=== PATIENT | female | born 1975 | race Caucasian/White ===

== ENCOUNTER 2020-09-07 09:27 | Emergency (ER) | payer OTHER ==
--- NOTE | 2020-09-07 10:05 | ERPHSYRPT ---
- History of Present Illness Time Seen by Provider: 09/07/20 09:45 Source: patient, family Exam Limitations: no limitations Patient Subjective Stated Complaint: Pt c/o of being dizzy off and on for the past week Triage Nursing Assessment: Pt brought to the ER by her boyfriend, hypertensive, denies pain, states that sometimes she is awaken with dizziness and then she will be fine all day, denies ear pain, denies any congestion or nasal drainage, c/o of eyes burning due to her allergies, doesn't appear to be in any distress Physician History: This is a 44-year-old white female who presents with 1 week history of int ermittent dizziness and lightheadedness. She never had anything like this in the past. She did have medication that she started back in April but her symptoms began only a week ago. She has no chest pain she has no shortness of breath. She has no nausea vomiting diarrhea. She has no abdominal pain. She did not suffer any head trauma. She has no earaches. She has no cough. Patient has no cardiac history. Patient does have a history of migraine headaches. Patient does not have a headache at this time. Timing/Duration: week(s), intermittent Severity: moderate Deficits: no difficulties Baseline/Normal Cognition: alert oriented x 3 Current Cognition: alert oriented x 3 Baseline Gait: walks w/o assistance Associated Symptoms: denies symptoms Allergies/Adverse Reactions: aspirin Allergy (Severe, Verified 09/07/20 09:45) cefaclor [From Ceclor] Allergy (Severe, Verified 09/07/20 09:45) Anaphylactic Reaction clarithromycin [From Biaxin] Allergy (Severe, Verified 09/07/20 09:45) Penicillins Allergy (Severe, Verified 09/07/20 09:45) Anaphylactic Reaction sulfamethoxazole [From Bactrim] Allergy (Severe, Verified 09/07/20 09:45) trimethoprim [From Bactrim] Allergy (Severe, Verified 09/07/20 09:45) Home Medications: Duloxetine HCl [Cymbalta] 60 mg PO DAILY 09/07/20 [History] Travel Risk - International Travel Have you traveled outside of the country in past 3 weeks: No - Coronavirus Screening Are you exhibiting any of the following symptoms?: No Close contact with a COVID-19 positive Pt in past 14-21 Days: No - Vaccine Status Have you recieved a Covid-19 vaccination: No - Review of Systems Constitutional: No Symptoms Eyes: No Symptoms Ears, Nose, & Throat: No Symptoms Respiratory: No Symptoms Cardiac: No Symptoms Abdominal/Gastrointestinal: No Symptoms Genitourinary Symptoms: No Symptoms Musculoskeletal: No Symptoms Skin: No Symptoms Neurological: Dizziness Psychological: No Symptoms Endocrine: No Symptoms Hematologic/Lymphatic: No Symptoms Immunological/Allergic: No Symptoms All Other Systems: Reviewed and Negative - Past Medical History Pertinent Past Medical History: Yes Neurological History: Migraines ENT History: No Pertinent History Cardiac History: No Pertinent History Respiratory History: No Pertinent History Endocrine Medical History: No Pertinent History Musculoskeletal History: No Pertinent History GI Medical History: No Pertinent History History: No Pertinent History Psycho-Social History: No Pertinent History Female Reproductive Disorders: No Pertinent History - Past Surgical History Past Surgical History: Yes Neuro Surgical History: No Pertinent History Cardiac: No Pertinent History Respiratory: No Pertinent History Gastrointestinal: Appendectomy Genitourinary: No Pertinent History Musculoskeletal: Orthopedic Surgery Female Surgical History: Dilation & Curettage, Section, Tubal Ligation Other Surgical History: ablasion, 2 left shoulder, 2 left pinky, jorden carpal tunnel - Social History Smoking Status: Former smoker Exposure to second hand smoke: No Drug Use: none Patient Lives Alone: No - Female History Hx Now: No (ablasion, tubal) - Nursing Vital Signs Nursing Vital Signs: Initial Vital Signs Temperature 98.2 F 09/07/20 09:31 Pulse Rate 71 09/07/20 09:31 Blood Pressure 144/82 09/07/20 09:31 O2 Sat by Pulse Oximetry 100 09/07/20 09:31 Pain Scale Pain Intensity 0 - Blairs Coma Scale Best Eye Response (Blairs): (4) open spontaneously Best Verbal Response (Wan): (5) oriented Best Motor Response (Blairs): (6) obeys commands Blairs Total: 15 - Physical Exam General Appearance: no apparent distress, alert, anxiety, obese Eye Exam: bilateral eye: normal inspection, PERRL, EOMI Ears, Nose, Throat Exam: normal ENT inspection, moist mucous membranes Neck Exam: normal inspection, non-tender, supple, full range of motion Respiratory: normal breath sounds, lungs clear, airway intact, No chest tenderness, No respiratory distress Cardiovascular: regular rate/rhythm, normal heart sounds, normal peripheral pul ses Gastrointestinal: soft, normal bowel sounds, No tenderness Pelvic Exam: not done Rectal Exam: not done Back Exam: normal inspection, normal range of motion, No CVA tenderness, No vertebral tenderness Extremity Exam: normal inspection, normal range of motion, pelvis stable 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 No comparison EKG available) Ordered Tests: Active Orders 24 hr Category Date Time Status Clean Catch Urine Specimen STAT Care 09/07/20 10:09 Active EKG-ER Only STAT Care 09/07/20 10:09 Active IV Insertion STAT Care 09/07/20 10:09 Active HEAD WITHOUT CONTRAST [CT] Stat Exams 09/07/20 10:09 Taken CBC W DIFF Stat Lab 09/07/20 10:15 Completed CMP Stat Lab 09/07/20 10:15 Completed ETHYL ALCOHOL Stat Lab 09/07/20 10:15 Completed MAGNESIUM Stat Lab 09/07/20 10:15 Completed TROPONIN Q3H Lab 09/07/20 10:15 Completed TROPONIN Q3H Lab 09/07/20 13:15 Ordered TROPONIN Q3H Lab 09/07/20 16:15 Ordered TROPONIN Q3H Lab 09/07/20 19:15 Ordered TROPONIN Q3H Lab 09/07/20 22:15 Ordered UA W/RFX UR CULTURE Stat Lab 09/07/20 10:11 Completed Urine Triage Profile Stat Lab 09/07/20 10:15 Completed Medication Summary Discontinued Medications Generic Name Dose Route Start Last Admin Trade Name Freq PRN Reason Stop Dose Admin Meclizine HCl 25 mg 09/07/20 10:09 09/07/20 10:12 Antivert 25 Mg PO 09/07/20 10:10 25 mg STAT ONE Administration Meclizine HCl Confirm 09/07/20 10:12 Antivert 25 Mg Administered 09/07/20 10:13 Dose 25 mg .ROUTE [facility] ONE Lab/Rad Data: Laboratory Result Diagrams 09/07/20 10:15 09/07/20 10:15 Laboratory Results 09/07/20 09/07/20 09/07/20 Range/Units 10:15 10:15 10:15 WBC 7.1 (4.0-10.5) K/mm3 RBC 4.86 (4.1-5.4) M/mm3 Hgb 13.8 (12.0-16.0) gm/dl Hct 42.4 (35-47) % MCV 87.2 (78-100) fl MCH 28.4 (26-32) pg MCHC 32.5 (32-36) g/dl RDW 14.0 (11.5-14.0) % Plt Count 181 (150-450) K/mm3 MPV 12.7 H (7.5-11.0) fl Gran % 70.6 H (36.0-66.0) % Eos # (Auto) 0.06 (0-0.5) Absolute Lymphs (auto) 1.52 (1.0-4.6) Absolute Monos (auto) 0.49 (0.0-1.3) Lymphocytes % 21.4 L (24.0-44.0) % Monocytes % 6.9 (0.0-12.0) % Eosinophils % 0.8 (0.00-5.0) % Basophils % 0.3 (0.0-0.4) % Absolute Granulocytes 5.00 (1.4-6.9) Basophils # 0.02 (0-0.4) Sodium 138 (137-145) mmol/L Potassium 4.0 (3.5-5.1) mmol/L Chloride 105 (98-107) mmol/L Carbon Dioxide 26 (22-30) mmol/L Anion Gap 9.8 (5-15) MEQ/L BUN 14 (7-17) mg/dL Creatinine 0.81 (0.52-1.04) mg/dL Estimated GFR > 60.0 ML/MIN Glucose 78 (74-106) mg/dL Calcium 9.0 (8.4-10.2) mg/dL Magnesium 2.4 H (1.6-2.3) mg/dL Total Bilirubin 0.30 (0.2-1.3) mg/dL AST 20 (14-36) U/L ALT 13 (0-35) U/L Alkaline Phosphatase 59 (38-126) U/L Troponin I < 0.012 (0.000-0.034) ng/mL Serum Total Protein 7.7 (6.3-8.2) g/dL Albumin 4.3 (3.5-5.0) g/dL Urine Color (YELLOW) Urine Appearance (CLEAR) Urine pH (5-6) Ur Specific [place] (1.005-1.025) Urine Protein (Negative) Urine Ketones (NEGATIVE) Urine Blood (0-5) Florentino/ul Urine Nitrite (NEGATIVE) Urine Bilirubin (NEGATIVE) Urine Urobilinogen (0-1) mg/dL Ur Leukocyte Esterase (NEGATIVE) Urine WBC (Auto) (0-5) /HPF Urine RBC (Auto) (0-2) /HPF U Epithel Cells (Auto) (FEW) /HPF Urine Bacteria (Auto) (NEGATIVE) /HPF Urine Mucus (Auto) (NEGATIVE) /HPF Urine Culture Reflexed (NO) Urine Glucose (NEGATIVE) mg/dL Urine Opiates Level (NEGATIVE) Ur Methadone (NEGATIVE) Urine Barbiturates (NEGATIVE) Ur Phencyclidine (PCP) (NEGATIVE) Urine Amphetamine (NEGATIVE) U Benzodiazepine Level (NEGATIVE) Urine Cocaine (NEGATIVE) Urine Marijuana (THC) (NEGATIVE) Ethyl Alcohol < 10 (0-10) mg/dL 09/07/20 09/07/20 Range/Units 10:15 10:11 WBC (4.0-10.5) K/mm3 RBC (4.1-5.4) M/mm3 Hgb (12.0-16.0) gm/dl Hct (35-47) % MCV (78-100) fl MCH (26-32) pg MCHC (32-36) g/dl RDW (11.5-14.0) % Plt Count (150-450) K/mm3 MPV (7.5-11.0) fl Gran % (36.0-66.0) % Eos # (Auto) (0-0.5) Absolute Lymphs (auto) (1.0-4.6) Absolute Monos (auto) (0.0-1.3) Lymphocytes % (24.0-44.0) % Monocytes % (0.0-12.0) % Eosinophils % (0.00-5.0) % Basophils % (0.0-0.4) % Absolute Granulocytes (1.4-6.9) Basophils # (0-0.4) Sodium (137-145) mmol/L Potassium (3.5-5.1) mmol/L Chloride (98-107) mmol/L Carbon Dioxide (22-30) mmol/L Anion Gap (5-15) MEQ/L BUN (7-17) mg/dL Creatinine (0.52-1.04) mg/dL Estimated GFR ML/MIN Glucose (74-106) mg/dL Calcium (8.4-10.2) mg/dL Magnesium (1.6-2.3) mg/dL Total Bilirubin (0.2-1.3) mg/dL AST (14-36) U/L ALT (0-35) U/L Alkaline Phosphatase (38-126) U/L Troponin I (0.000-0.034) ng/mL Serum Total Protein (6.3-8.2) g/dL Albumin (3.5-5.0) g/dL Urine Color YELLOW (YELLOW) Urine Appearance CLEAR (CLEAR) Urine pH 5.0 (5-6) Ur Specific [place] 1.028 (1.005-1.025) Urine Protein NEGATIVE (Negative) Urine Ketones NEGATIVE (NEGATIVE) Urine Blood NEGATIVE (0-5) Florentino/ul Urine Nitrite NEGATIVE (NEGATIVE) Urine Bilirubin NEGATIVE (NEGATIVE) Urine Urobilinogen NEGATIVE (0-1) mg/dL Ur Leukocyte Esterase NEGATIVE (NEGATIVE) Urine WBC (Auto) NONE (0-5) /HPF Urine RBC (Auto) NONE (0-2) /HPF U Epithel Cells (Auto) NONE (FEW) /HPF Urine Bacteria (Auto) NONE (NEGATIVE) /HPF Urine Mucus (Auto) SLIGHT (NEGATIVE) /HPF Urine Culture Reflexed NO (NO) Urine Glucose NEGATIVE (NEGATIVE) mg/dL Urine Opiates Level NEGATIVE (NEGATIVE) Ur Methadone NEGATIVE (NEGATIVE) Urine Barbiturates NEGATIVE (NEGATIVE) Ur Phencyclidine (PCP) NEGATIVE (NEGATIVE) Urine Amphetamine NEGATIVE (NEGATIVE) U Benzodiazepine Level NEGATIVE (NEGATIVE) Urine Cocaine NEGATIVE (NEGATIVE) Urine Marijuana (THC) NEGATIVE (NEGATIVE) Ethyl Alcohol (0-10) mg/dL - Departure Departure Disposition: Home Clinical Impression: Dizziness Condition: Stable Critical Care Time: No Referrals: BOURGASSER,GENE A [NON-STAFF PHY W/O PRIVILEGES] - Additional Instructions: Drink plenty of fluids. Take your medication as prescribed. Call your primary care physician on 09/09/2020 and make an appointment for further management and evaluation. Return to the emergency department if your symptoms worsen Prescriptions: Meclizine HCl 25 mg [Antivert 25 mg] 25 mg PO Q8H PRN #10 tablet PRN Reason: Dizziness
[2020-09-07] MEDS: ANTIVERT 25 MG PO ONE (10:12)
[2020-09-07] MEDS ORDERED: ANTIVERT 25 MG ONE (10:12)
[2020-09-07 10:26] LABS: BASOPHIL % 0.3 % (0.0-0.4); Basophil (Absolute #) 0.02 (0-0.4); Eosinophil % 0.8 % (0.00-5.0); Eosinophil (Absolute #) 0.06 (0-0.5); Hematocrit 42.4 % (35-47); Hemoglobin 13.8 gm/dl (12.0-16.0); Lymphocyte (Absolute #) 1.52 (1.0-4.6); Lymphocytes % 21.4 % (24.0-44.0); Mean Cell Volume 87.2 fl (78-100); Mean Corpuscular Hemoglobin 28.4 pg (26-32); Mean Corpuscular Hgb Concent. 32.5 g/dl (32-36); Mean Platelet Volume 12.7 fl (7.5-11.0); Monocyte (Absolute #) 0.49 (0.0-1.3); Monocytes % 6.9 % (0.0-12.0); Neutrophil % 70.6 % (36.0-66.0); Platelet Count 181 K/mm3 (150-450); Red Blood Count 4.86 M/mm3 (4.1-5.4); White Blood Count 7.1 K/mm3 (4.0-10.5)
[2020-09-07 10:32] LABS: Appearance CLEAR (CLEAR); Bilirubin NEGATIVE (NEGATIVE); Blood NEGATIVE Ery/ul (0-5); Glucose NEGATIVE (NEGATIVE); Ketones NEGATIVE (NEGATIVE); Leukocyte Esterase NEGATIVE (NEGATIVE); Mucus SLIGHT /HPF (NEGATIVE); Nitrite NEGATIVE (NEGATIVE); Protein,Urine Dip NEGATIVE (Negative); Specific Gravity 1.028 (1.005-1.025); Urobilinogen NEGATIVE mg/dL (0-1)
[2020-09-07 10:35] LABS: ALBUMIN 4.3 g/dL (3.5-5.0); ALKALINE PHOSPHATASE 59 U/L (38-126); ANION GAP 9.8 MEQ/L (5-15); BLOOD UREA NITROGEN 14 mg/dL (7-17); CHLORIDE 105 mmol/L (98-107); Carbon Dioxide 26 mmol/L (22-30); Creatinine 1 0.81 mg/dL (0.52-1.04); EST GLOMERULAR FILTRATION RATE > 60.0 ML/MIN; ETHYL ALCOHOL < 10 mg/dL (0-10); Glucose 78 mg/dL (74-106); MAGNESIUM 2.4 mg/dL (1.6-2.3); SGOT/AST 20 U/L (14-36); SGPT/ALT 13 U/L (0-35); SODIUM 138 mmol/L (137-145); Total Protein 7.7 g/dL (6.3-8.2)
[2020-09-07 10:46] LABS: Amphetamine,Urine NEGATIVE (NEGATIVE); Barbiturate,Urine NEGATIVE (NEGATIVE); Benzodiazepine,Urine NEGATIVE (NEGATIVE); Cocaine,Urine NEGATIVE (NEGATIVE); Methadone,Urine NEGATIVE (NEGATIVE); Opiate,Urine NEGATIVE (NEGATIVE); PCP,Urine NEGATIVE (NEGATIVE); THC,Urine NEGATIVE (NEGATIVE)
[2020-09-07 11:33] VITALS: BP 118/79; PULSE 59; O2SAT 98
--- NOTE | 2020-09-07 16:05 | XRAY ---
Indication: Dizziness and nausea one week. No known injury. Multiple contiguous axial images obtained through the head without contrast. Comparison: None Normal appearing brain parenchyma, ventricles, and bony calvarium. Visualized paranasal sinuses and mastoid air cells are clear. Impression: Normal CT head without contrast exam. Comment: Preliminary interpretation was made by [facility]. No critical discrepancy.
== END 2020-09-07 11:40 | disposition home or self-care (01) ==
LOC: ED 09:27
DX: R42 Dizziness and giddiness (principal)
CPT/HCPCS: 36000; 36415; 70450; 80053; 80307; 81001; 83735; 84484; 85025; 93005; 99284; G0480; A9270-GY

== ENCOUNTER 2020-12-17 10:17 | Emergency (ER) | payer BC, OTHER ==
--- NOTE | 2020-12-17 10:52 | ERPHSYRPT ---
- History of Present Illness Time Seen by Provider: 12/17/20 10:30 Source: patient Exam Limitations: no limitations Patient Subjective Stated Complaint: pt here for burning and tingling pain to feet for 3 weeks getting worse, she has apt wednesday with , no injury Triage Nursing Assessment: pt alert, resp easy, skin w/d/p. pt restless in bed, crying and anxious, no edema noted. moves all ext well Physician History: Patient is a 45-year-old female presents to our ED with complaints of progressively worsening burning and tingling of bilateral feet. Symptoms started approximately 3 weeks ago. Patient states her tingling is unbearable. She also has low back pain. No trauma. No fever. Symptoms are mild to modera te in intensity. No specific worsening improving factors. Patient denies associated fever. No saddle anesthesia. No recent back procedure. Patient states she is otherwise healthy. Patient voices no other complaints or concerns at this time. Timing/Duration: week(s) Severity: moderate (3 weeks) Modifying Factors: Improves With: nothing Associated Symptoms: denies symptoms Allergies/Adverse Reactions: aspirin Allergy (Severe, Verified 12/17/20 10:28) cefaclor [From Ceclor] Allergy (Severe, Verified 12/17/20 10:28) Anaphylactic Reaction clarithromycin [From Biaxin] Allergy (Severe, Verified 12/17/20 10:28) Penicillins Allergy (Severe, Verified 12/17/20 10:28) Anaphylactic Reaction sulfamethoxazole [From Bactrim] Allergy (Severe, Verified 12/17/20 10:28) trimethoprim [From Bactrim] Allergy (Severe, Verified 12/17/20 10:28) Home Medications: Duloxetine HCl [Cymbalta] 60 mg PO DAILY 09/07/20 [History] Hx Influenza Vaccination/Date Given: No Hx Pneumococcal Vaccination/Date Given: No Immunizations Up to Date: Yes Travel Risk - International Travel Have you traveled outside of the country in past 3 weeks: No - Coronavirus Screening Are you exhibiting any of the following symptoms?: No Close contact with a COVID-19 positive Pt in past 14-21 Days: No - Vaccine Status Have you recieved a Covid-19 vaccination: No - Review of Systems Constitutional: No Symptoms, No Fever, No Chills Eyes: No Symptoms Ears, Nose, & Throat: No Symptoms Respiratory: No Symptoms, No Cough, No Dyspnea Cardiac: No Symptoms, No Chest Pain, No Edema, No Syncope Abdominal/Gastrointestinal: No Symptoms, No Abdominal Pain, No Nausea, No Vomiting, No Diarrhea Genitourinary Symptoms: No Symptoms, No Dysuria Musculoskeletal: No Symptoms, No Back Pain, No Neck Pain Skin: No Symptoms, No Rash Neurological: No Symptoms, No Dizziness, No Focal Weakness, No Sensory Changes Psychological: No Symptoms Endocrine: No Symptoms Hematologic/Lymphatic: No Symptoms Immunological/Allergic: No Symptoms All Other Systems: Reviewed and Negative - Past Medical History Pertinent Past Medical History: Yes Neurological History: Migraines ENT History: No Pertinent History Cardiac History: No Pertinent History Respiratory History: No Pertinent History Endocrine Medical History: No Pertinent History Musculoskeletal History: No Pertinent History GI Medical History: No Pertinent History History: No Pertinent History Psycho-Social History: No Pertinent History Female Reproductive Disorders: No Pertinent History Other Medical History: body aches - Past Surgical History Past Surgical History: Yes Neuro Surgical History: No Pertinent History Cardiac: No Pertinent History Respiratory: No Pertinent History Gastrointestinal: Appendectomy Genitourinary: No Pertinent History Musculoskeletal: Orthopedic Surgery Female Surgical History: Dilation & Curettage, Section, Tubal Ligation Other Surgical History: ablasion, 2 left shoulder, 2 left pinky, jorden carpal tunnel - Social History Smoking Status: Former smoker Exposure to second hand smoke: Yes Drug Use: none Patient Lives Alone: No - Female History Hx Last Menstrual Period: 5 years ago Hx Now: No - Nursing Vital Signs Nursing Vital Signs: Initial Vital Signs Temperature 98.6 F 12/17/20 10:22 Pulse Rate 113 H 12/17/20 10:22 Respiratory Rate 20 12/17/20 10:22 Blood Pressure 174/91 12/17/20 10:22 O2 Sat by Pulse Oximetry 99 12/17/20 10:22 Pain Scale Pain Intensity 5 - Physical Exam General Appearance: no apparent distress, alert Eye Exam: PERRL/EOMI, eyes nml inspection Ears, Nose, Throat Exam: normal ENT inspection, TMs normal, pharynx normal, moist mucous membranes Neck Exam: normal inspection, non-tender, supple, full range of motion Respiratory Exam: normal breath sounds, lungs clear, No respiratory distress Cardiovascular Exam: regular rate/rhythm, normal heart sounds, normal peripheral pulses Gastrointestinal/Abdomen Exam: soft, normal bowel sounds, No tenderness, No mass Back Exam: normal inspection, normal range of motion, No CVA tenderness, No vertebral tenderness Extremity Exam: normal inspection, normal range of motion, pelvis stable, other (Negative Homans' sign bilaterally), No amputations, No penetrations, No limited range of motion, No pedal edema, No swelling, No tenderness Neurologic Exam: alert, oriented x 3, cooperative, normal mood/affect, sensation nml, sensory deficit, No motor deficits Skin Exam: normal color, warm, dry, No rash Lymphatic Exam: No adenopathy SpO2 Interpretation: normal SpO2: 99 O2 Delivery: Room Air - Course Nursing assessment & vital signs reviewed: Yes - CT Exams Lumbar Spine CT Interpretation: Tele-radiologist Report (At L5-S1 broad-based disc osteophyte complex with degenerative vacuum disc phenomena. Remaining level negative for acute fracture or suspicious bony lesions disc herniation or spinal canal stenosis. Facets are symmetric. Sagittal and coronal reformatted imaging demonstrates normal alignment with ) Ordered Tests: Active Orders 24 hr Category Date Time Status IV Insertion STAT Care 12/17/20 10:46 Active LUMBAR SPINE W/O [CT] Stat Exams 12/17/20 10:51 Completed CBC W DIFF Stat Lab 12/17/20 11:05 Completed CMP Stat Lab 12/17/20 11:05 Completed HCG,QUALITATIVE URINE Stat Lab 12/17/20 11:14 Completed UA W/RFX UR CULTURE Stat Lab 12/17/20 11:14 Completed Medication Summary Generic Name Dose Route Start Last Admin Trade Name Freq PRN Reason Stop Dose Admin Sodium Chloride 1,000 mls @ 100 mls/hr 12/17/20 11:00 12/17/20 11:19 Sodium Chloride 0.9% 1000 Ml IV 01/16/21 10:59 100 mls/hr .Q10H RADHA Administration Discontinued Medications Generic Name Dose Route Start Last Admin Trade Name Freq PRN Reason Stop Dose Admin Hydrocodone Bitart/Acetaminophen 6 tab 12/17/20 13:36 [place] 5/325 Mg PO 12/17/20 13:37 SENT HOME W/ PATIENT ONE Methylprednisolone Sodium 0 mg 12/17/20 10:50 12/17/20 11:19 Succinate 125 mg/ Sterile IV 12/17/20 10:51 125 mg Water 2 ml STAT ONE Administration Methylprednisolone Sodium Succinate Confirm 12/17/20 11:15 Solu-Medrol Administered 12/17/20 11:16 Dose 125 mg .ROUTE .STK-MED ONE Morphine Sulfate 4 mg 12/17/20 10:51 12/17/20 11:18 Morphine Sulfate 4 Mg Inj IV 12/17/20 10:52 4 mg STAT ONE Administration Morphine Sulfate Confirm 12/17/20 11:15 Morphine Sulfate 4 Mg Inj Administered 12/17/20 11:16 Dose 4 mg .ROUTE .STK-MED ONE Sterile Water Confirm 12/17/20 11:15 Sterile H2o 10 Ml Administered 12/17/20 11:16 Dose 10 ml IJ .STK-MED ONE Lab/Rad Data: Laboratory Result Diagrams 12/17/20 11:05 12/17/20 11:05 Laboratory Results 12/17/20 12/17/20 12/17/20 Range/Units 11:14 11:14 11:05 WBC (4.0-10.5) K/mm3 RBC (4.1-5.4) M/mm3 Hgb (12.0-16.0) gm/dl Hct (35-47) % MCV (78-100) fl MCH (26-32) pg MCHC (32-36) g/dl RDW (11.5-14.0) % Plt Count (150-450) K/mm3 MPV (7.5-11.0) fl Gran % (36.0-66.0) % Eos # (Auto) (0-0.5) Absolute Lymphs (auto) (1.0-4.6) Absolute Monos (auto) (0.0-1.3) Lymphocytes % (24.0-44.0) % Monocytes % (0.0-12.0) % Eosinophils % (0.00-5.0) % Basophils % (0.0-0.4) % Absolute Granulocytes (1.4-6.9) Basophils # (0-0.4) Sodium 140 (137-145) mmol/L Potassium 4.2 (3.5-5.1) mmol/L Chloride 105 (98-107) mmol/L Carbon Dioxide 23 (22-30) mmol/L Anion Gap 15.7 H (5-15) MEQ/L BUN 21 H (7-17) mg/dL Creatinine 0.86 (0.52-1.04) mg/dL Estimated GFR > 60.0 ML/MIN Glucose 129 H (74-106) mg/dL Calcium 9.0 (8.4-10.2) mg/dL Total Bilirubin < 0.10 L (0.2-1.3) mg/dL AST 20 (14-36) U/L ALT 16 (0-35) U/L Alkaline Phosphatase 53 (38-126) U/L Serum Total Protein 7.5 (6.3-8.2) g/dL Albumin 4.2 (3.5-5.0) g/dL Urine Color YELLOW (YELLOW) Urine Appearance SLIGHTLY CLOUDY (CLEAR) Urine pH 6.0 (5-6) Ur Specific Mason 1.027 (1.005-1.025) Urine Protein NEGATIVE (Negative) Urine Ketones NEGATIVE (NEGATIVE) Urine Blood NEGATIVE (0-5) Florentino/ul Urine Nitrite NEGATIVE (NEGATIVE) Urine Bilirubin NEGATIVE (NEGATIVE) Urine Urobilinogen NEGATIVE (0-1) mg/dL Ur Leukocyte Esterase TRACE (NEGATIVE) Urine WBC (Auto) NONE (0-5) /HPF Urine RBC (Auto) NONE (0-2) /HPF U Epithel Cells (Auto) RARE (FEW) /HPF Urine Bacteria (Auto) NONE (NEGATIVE) /HPF Urine Mucus (Auto) SLIGHT (NEGATIVE) /HPF Urine Culture Reflexed NO (NO) Urine Glucose NEGATIVE (NEGATIVE) mg/dL Urine HCG, Qual NEGATIVE (Negative) 12/17/20 Range/Units 11:05 WBC 10.7 H (4.0-10.5) K/mm3 RBC 4.60 (4.1-5.4) M/mm3 Hgb 12.8 (12.0-16.0) gm/dl Hct 40.0 (35-47) % MCV 87.0 (78-100) fl MCH 27.8 (26-32) pg MCHC 32.0 (32-36) g/dl RDW 14.3 H (11.5-14.0) % Plt Count 166 (150-450) K/mm3 MPV 12.3 H (7.5-11.0) fl Gran % 70.4 H (36.0-66.0) % Eos # (Auto) 0.09 (0-0.5) Absolute Lymphs (auto) 2.34 (1.0-4.6) Absolute Monos (auto) 0.73 (0.0-1.3) Lymphocytes % 21.8 L (24.0-44.0) % Monocytes % 6.8 (0.0-12.0) % Eosinophils % 0.8 (0.00-5.0) % Basophils % 0.2 (0.0-0.4) % Absolute Granulocytes 7.54 H (1.4-6.9) Basophils # 0.02 (0-0.4) Sodium (137-145) mmol/L Potassium (3.5-5.1) mmol/L Chloride (98-107) mmol/L Carbon Dioxide (22-30) mmol/L Anion Gap (5-15) MEQ/L BUN (7-17) mg/dL Creatinine (0.52-1.04) mg/dL Estimated GFR ML/MIN Glucose (74-106) mg/dL Calcium (8.4-10.2) mg/dL Total Bilirubin (0.2-1.3) mg/dL AST (14-36) U/L ALT (0-35) U/L Alkaline Phosphatase (38-126) U/L Serum Total Protein (6.3-8.2) g/dL Albumin (3.5-5.0) g/dL Urine Color (YELLOW) Urine Appearance (CLEAR) Urine pH (5-6) Ur Specific Mason (1.005-1.025) Urine Protein (Negative) Urine Ketones (NEGATIVE) Urine Blood (0-5) Florentino/ul Urine Nitrite (NEGATIVE) Urine Bilirubin (NEGATIVE) Urine Urobilinogen (0-1) mg/dL Ur Leukocyte Esterase (NEGATIVE) Urine WBC (Auto) (0-5) /HPF Urine RBC (Auto) (0-2) /HPF U Epithel Cells (Auto) (FEW) /HPF Urine Bacteria (Auto) (NEGATIVE) /HPF Urine Mucus (Auto) (NEGATIVE) /HPF Urine Culture Reflexed (NO) Urine Glucose (NEGATIVE) mg/dL Urine HCG, Qual (Negative) - Progress Progress: improved Progress Note: Patient reassessed. Pain improved. CT scan reveals broad-based disc osteophyte complex. MRI may be helpful. Will discharge at this time. Patient to follow- up with primary care doctor within 48 hours for reevaluation. A prescription for prednisone was forwarded to patient's pharmacy. 12/17/20 13:18 Counseled pt/family regarding: lab results, diagnosis - Departure Departure Disposition: Home Clinical Impression: Peripheral neuropathy, Broadbase disc osteophyte Condition: Stable Critical Care Time: No Referrals: SIXTO HUNT MD [Primary Care Provider] - Additional Instructions: Discharge/Care Plan SANTO PARHAM was seen on 12/17/20 in the Emergency Room. The patient was counseled regarding Diagnosis,Lab results, Imaging studies, need for follow up and when to return to the Emergency Room. Prescriptions given: Discharge Note I have spoken with the patient and/or caregivers. I have explained the patient's condition, diagnosis and treatment plan based on the information available to me at this time. I have answered the patient's and/or caregiver's questions and addressed any concerns. The patient and/or caregivers have as good understanding of the patient's diagnosis, condition and treatment plan as can be expected at this point. The vital signs have been stable. The patient's condition is stable and appropriate for discharge from the emergency department. The patient will pursue further outpatient evaluation with the primary care physician or other designated or consulting physician as outlined in the discharge instructions. The patient and/or caregivers are agreeable to this plan of care and follow-up instructions have been explained in detail. The patient and/or caregivers have received these instruction. The patient/and or caregivers are aware that any significant change in condition or worsening of symptoms should prompt an immediate return to this or the closest emergency department or call 911. Prescriptions: Prednisone 10 mg [Deltasone 10 mg] 40 mg PO DAILY 3 Days #12 tablet
[2020-12-17 11:08] LABS: Absolute Neutrophil Ct (ANC) 7.54 (1.4-6.9); BASOPHIL % 0.2 % (0.0-0.4); Basophil (Absolute #) 0.02 (0-0.4); Eosinophil % 0.8 % (0.00-5.0); Eosinophil (Absolute #) 0.09 (0-0.5); Hemoglobin 12.8 gm/dl (12.0-16.0); Lymphocyte (Absolute #) 2.34 (1.0-4.6); Lymphocytes % 21.8 % (24.0-44.0); Mean Corpuscular Hemoglobin 27.8 pg (26-32); Mean Platelet Volume 12.3 fl (7.5-11.0); Monocyte (Absolute #) 0.73 (0.0-1.3); Monocytes % 6.8 % (0.0-12.0); Neutrophil % 70.4 % (36.0-66.0); Platelet Count 166 K/mm3 (150-450); Red Cell Distribution Width 14.3 % (11.5-14.0); White Blood Count 10.7 K/mm3 (4.0-10.5)
[2020-12-17] MEDS ORDERED: MORPHINE SULFATE 4 MG INJ ONE (11:15)
[2020-12-17] MEDS ORDERED: solu-MEDROL ONE (11:15)
[2020-12-17] MEDS ORDERED: Sodium Chloride 0.9% 1000 ML 1,000 ML ONE (11:15)
[2020-12-17] MEDS ORDERED: Sterile H2O 10 ml IJ ONE (11:15)
[2020-12-17] MEDS: MORPHINE SULFATE 4 MG INJ IV ONE (11:18)
[2020-12-17 11:19] LABS: ALBUMIN 4.2 g/dL (3.5-5.0); ALKALINE PHOSPHATASE 53 U/L (38-126); ANION GAP 15.7 MEQ/L (5-15); BILIRUBIN,TOTAL < 0.10 mg/dL (0.2-1.3); BLOOD UREA NITROGEN 21 mg/dL (7-17); CHLORIDE 105 mmol/L (98-107); Carbon Dioxide 23 mmol/L (22-30); Creatinine 1 0.86 mg/dL (0.52-1.04); EST GLOMERULAR FILTRATION RATE > 60.0 ML/MIN; Glucose 129 mg/dL (74-106); Potassium 4.2 mmol/L (3.5-5.1); SGOT/AST 20 U/L (14-36); SGPT/ALT 16 U/L (0-35); SODIUM 140 mmol/L (137-145); Total Protein 7.5 g/dL (6.3-8.2)
[2020-12-17] MEDS: solu-MEDROL 125 MG, Sterile H2O 10 ml 2 ML IV ONE ×2 (11:19)
[2020-12-17] MEDS: Sodium Chloride 0.9% 1000 ML 1,000 ML IV SCH (11:19)
--- NOTE | 2020-12-17 12:07 | XRAY ---
Indication: Chronic low back pain. Multiple contiguous images obtained through the lumbar spine. Sagittal and coronal reformatted images obtained. Comparison: None Axial images demonstrates mild L5-S1 broad-based disc osteophyte complex with degenerative vacuum disc phenomena. Remaining levels negative for acute fracture, suspicious bony lesions, disc herniation, or spinal canal stenosis. Facets are symmetric. Sagittal and coronal reformatted images demonstrates normal alignment with L5-S1 disc space narrowing. No acute compression fracture or subluxation. Visualized noncontrasted soft tissues are unremarkable. Impression: L5-S1 degenerative disc disease better evaluated with outpatient MRI. Remaining CT lumbar spine is normal.
[2020-12-17 12:23] LABS: Appearance SLIGHTLY CLOUDY (CLEAR); Bilirubin NEGATIVE (NEGATIVE); Blood NEGATIVE Ery/ul (0-5); Epithelial Cells RARE /HPF (FEW); Glucose NEGATIVE (NEGATIVE); Ketones NEGATIVE (NEGATIVE); Leukocyte Esterase TRACE (NEGATIVE); Mucus SLIGHT /HPF (NEGATIVE); Nitrite NEGATIVE (NEGATIVE); Protein,Urine Dip NEGATIVE (Negative); Specific Gravity 1.027 (1.005-1.025); Urobilinogen NEGATIVE mg/dL (0-1)
[2020-12-17] MEDS: NORCO 5/325 MG PO ONE (13:38)
[2020-12-17 13:48] VITALS: BP 128/75; PULSE 83; O2SAT 98
== END 2020-12-17 13:48 | disposition home or self-care (01) ==
LOC: ED 10:17
DX: G62.9 Polyneuropathy, unspecified (principal); M53.80 Other specified dorsopathies, site unspecified
CPT/HCPCS: 36000; 36415; 72131; 80053; 81001; 84703; 85025; 96374; 96375; 99284; J2270; J2930

== ENCOUNTER 2021-08-20 07:48 | Day surgery (SDC) | payer BC, OTHER ==
[2021-08-20] MEDS ORDERED: Xylocaine 1% Vial 30 ML PF IJ ONE (07:49)
[2021-08-20] MEDS ORDERED: Sodium Chloride 0.9(Preservative Free) 10 ML IJ ONE (07:49)
[2021-08-20] MEDS ORDERED: Depo-Medrol 40 MG/ML IM ONE (07:49)
--- NOTE | 2021-08-20 10:20 | XRAY ---
Indication: Lumbar BRANNON. Intraoperative fluoroscopy provided for 17 seconds. 2 digital spot image submitted for interpretation demonstrates midline posterior needle tip projecting posterior to L4-L5 interspace. Small amount of contrast injected for needle tip placement. Correlate with intraoperative findings/report.
--- NOTE | 2021-08-20 12:13 | XRAY ---
17 seconds fluoroscopy time in surgery for lumbar BRANNON.
== END 2021-08-20 09:50 | disposition home or self-care (01) ==
LOC: SDC-PAIN 07:48
PROVIDERS: ATTEND Psychiatry & Neurology Pain Medicine
DX: M54.16 Radiculopathy, lumbar region (principal); Z79.899 Other long term (current) drug therapy
CPT/HCPCS: 62323; 72100; 77003; 84703; J1030; J2001; Q9966

== ENCOUNTER 2021-12-31 08:36 | Day surgery (SDC) | payer OTHER ==
[2021-12-31] MEDS ORDERED: Marcaine Mpf 0.5% Vial 30 Ml IJ ONE (08:37)
[2021-12-31] MEDS ORDERED: Depo-Medrol 40 MG/ML IM ONE (08:37)
[2021-12-31] MEDS ORDERED: DIPRIVAN 200 MG/20 ML IV ONE (10:37)
[2021-12-31] MEDS ORDERED: Lactated Ringers 1,000 ML IV ONE (12:14)
--- NOTE | 2021-12-31 14:33 | XRAY ---
Indication: Bilateral SI joint injection. Intraoperative fluoroscopy provided for 18 seconds. 4 digital spot image submitted for interpretation demonstrates posterior needle tip projecting over the inferior left and right SI joint. Correlate with intraoperative findings/report.
--- NOTE | 2021-12-31 16:44 | XRAY ---
18 seconds of fluoroscopy was used in surgery for bilateral SI joint injections.
== END 2021-12-31 11:00 | disposition home or self-care (01) ==
LOC: SDC-PAIN 08:36
PROVIDERS: ATTEND Psychiatry & Neurology Pain Medicine
DX: M19.012 Primary osteoarthritis, left shoulder (principal); M19.011 Primary osteoarthritis, right shoulder; Z79.899 Other long term (current) drug therapy
CPT/HCPCS: 27096; 72202; 77002; 81025; G0260; J1030; J2704

== ENCOUNTER 2022-02-11 10:53 | Day surgery (SDC) | payer OTHER ==
[2022-02-11] MEDS ORDERED: Marcaine Mpf 0.5% Vial 30 Ml IJ ONE (10:54)
[2022-02-11] MEDS ORDERED: LIDOCAINE HCL 1% 50 MG/5 ML VL PF IJ ONE (10:54)
[2022-02-11] MEDS ORDERED: Depo-Medrol 40 MG/ML IM ONE (10:54)
[2022-02-11] MEDS ORDERED: Sodium Chloride 0.9(Preservative Free) 10 ML IJ ONE (10:54)
[2022-02-11] MEDS ORDERED: Lactated Ringers 1,000 ML IV ONE (13:14)
[2022-02-11] MEDS ORDERED: DIPRIVAN 200 MG/20 ML IV ONE ×2 (13:17→13:32)
--- NOTE | 2022-02-11 14:12 | XRAY ---
Indication: Bilateral greater trochanter bursa injections. Intraoperative fluoroscopy provided for 32 seconds. 2 digital spot image submitted for interpretation demonstrates needle tip projecting lateral to the left and right greater trochanters. Small amount of contrast injected for both needle tip placement. Correlate with intraoperative findings/report.
--- NOTE | 2022-02-11 14:12 | XRAY ---
Indication: Lumbar BRANNON. Intraoperative fluoroscopy provided for 20 seconds. 2 digital spot image submitted for interpretation demonstrates posterior needle tip projecting just posterior to the L4-L5 interspace. Small amount of contrast injected for needle tip placement. Correlate with intraoperative findings/report.
--- NOTE | 2022-02-11 14:18 | XRAY ---
32 seconds fluoroscopy time in surgery for injections of the greater trochanters of both hips.
--- NOTE | 2022-02-11 14:18 | XRAY ---
20 seconds fluoroscopy time in surgery for lumbar BRANNON.
== END 2022-02-11 13:55 | disposition home or self-care (01) ==
LOC: SDC-PAIN 10:53
PROVIDERS: ATTEND Psychiatry & Neurology Pain Medicine
DX: M54.16 Radiculopathy, lumbar region (principal); M70.62 Trochanteric bursitis, left hip; M70.61 Trochanteric bursitis, right hip; Z79.899 Other long term (current) drug therapy
CPT/HCPCS: 20610; 62323; 72100; 73521; 77002; 77003; 81025; J1030; J2001; J2704; Q9966

== ENCOUNTER 2022-03-31 20:21 | Emergency (ER) | payer OTHER ==
[2022-03-31 20:47] VITALS: O2SAT 98
--- NOTE | 2022-03-31 21:14 | ERPHSYRPT ---
- History of Present Illness Time Seen by Provider: 03/31/22 20:50 Source: patient Exam Limitations: no limitations Patient Subjective Stated Complaint: rt knee and rt leg pain x2 weeks, my rt knee popped tonight and the pain is much worse now. Triage Nursing Assessment: pt brought back to ER by wheelchair. Pt alert and oriented, cooperative. Pt c/o rt knee/rt leg pain x 2 weeks. Pt was laying in bed tonight and moved her leg and rt knee popped and she has been in alot of pain since it popped. Pt has slight edema to rt knee. Pt states, "I can't hardly put any weight on my rt leg". Physician History: Patient is a 46-year-old female presents emergency department for evaluation of pain to her right knee. Patient was at home lying in bed she moves her knee her elbow "pop" patient now has pain. Pain described as a ache that is located to the anterior aspect of her right knee. No other injuries reported. Overlying soft tissue intact. Extremities neurovascular intact distally. Compartments are soft. Cap refill less than 2 seconds. Patient voices no other complaints concerns at this time. There is no trauma or falls involved in patient's complaint of pain. Patient admits to history of chronic right knee pain. Method of Injury: other Occurred: just prior to arrival Quality: constant Severity of Pain-Max: moderate Severity of Pain-Current: mild Lower Extremities Pain: knee: right Modifying Factors: Improves With: nothing Associated Symptoms: none Allergies/Adverse Reactions: aspirin Allergy (Severe, Verified 03/31/22 20:53) cefaclor [From Ceclor] Allergy (Severe, Verified 03/31/22 20:53) Anaphylactic Reaction clarithromycin [From Biaxin] Allergy (Severe, Verified 03/31/22 20:53) Penicillins Allergy (Severe, Verified 03/31/22 20:53) Anaphylactic Reaction sulfamethoxazole [From Bactrim] Allergy (Severe, Verified 03/31/22 20:53) trimethoprim [From Bactrim] Allergy (Severe, Verified 03/31/22 20:53) Home Medications: Duloxetine HCl [Cymbalta] 60 mg PO DAILY 09/07/20 [History] Aripiprazole 10 mg [Abilify 10 MG] 5 mg PO HS 03/31/22 [History] Gabapentin 600 mg PO TID 03/31/22 [History] Hydrocodone/Acetaminophen [Hydrocodone-Acetamin 5-325 mg] 1 tab PO BID PRN PRN 03/31/22 [History] Topiramate [Topamax] 50 mg PO BID 03/31/22 [History] Hx Tetanus, Diphtheria Vaccination/Date Given: Yes Hx Influenza Vaccination/Date Given: No Hx Pneumococcal Vaccination/Date Given: No Immunizations Up to Date: Yes Travel Risk - International Travel Have you traveled outside of the country in past 3 weeks: No - Coronavirus Screening Are you exhibiting any of the following symptoms?: No Close contact with a COVID-19 positive Pt in past 14-21 Days: No - Vaccine Status Have you recieved a Covid-19 vaccination: Yes 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[employer] - Review of Systems Constitutional: No Symptoms, No Fever, No Chills Eyes: No Symptoms Ears, Nose, & Throat: No Symptoms Respiratory: No Symptoms, No Cough, No Dyspnea Cardiac: No Symptoms, No Chest Pain, No Edema, No Syncope Abdominal/Gastrointestinal: No Symptoms, No Abdominal Pain, No Nausea, No Vomiting, No Diarrhea Genitourinary Symptoms: No Symptoms, No Dysuria Musculoskeletal: No Symptoms, No Back Pain, No Neck Pain Skin: No Symptoms, No Rash Neurological: No Symptoms, No Dizziness, No Focal Weakness, No Sensory Changes Psychological: No Symptoms Endocrine: No Symptoms Hematologic/Lymphatic: No Symptoms Immunological/Allergic: No Symptoms All Other Systems: Reviewed and Negative - Past Medical History Pertinent Past Medical History: Yes Neurological History: Migraines, Other ENT History: No Pertinent History Cardiac History: No Pertinent History Respiratory History: Asthma, Bronchitis Endocrine Medical History: No Pertinent History Musculoskeletal History: Osteoarthritis GI Medical History: No Pertinent History History: No Pertinent History Psycho-Social History: No Pertinent History Female Reproductive Disorders: No Pertinent History Other Medical History: body aches - Past Surgical History Past Surgical History: Yes Neuro Surgical History: No Pertinent History Cardiac: No Pertinent History Respiratory: No Pertinent History Gastrointestinal: Appendectomy Genitourinary: No Pertinent History Musculoskeletal: Orthopedic Surgery Female Surgical History: Dilation & Curettage, Section, Tubal Ligation Other Surgical History: ablasion, 2 left shoulder, 2 left pinky, jorden carpal tunnel, spinal and hip injections - Social History Smoking Status: Current every day smoker How long have you smoked: 20 yrs Exposure to second hand smoke: Yes Drug Use: none Patient Lives Alone: No - Female History Hx Now: No - Nursing Vital Signs Nursing Vital Signs: Initial Vital Signs Temperature 97.6 F 03/31/22 20:46 Pulse Rate 87 03/31/22 20:46 Respiratory Rate 18 03/31/22 20:46 Blood Pressure 108/55 03/31/22 20:46 O2 Sat by Pulse Oximetry 98 03/31/22 20:46 Pain Scale Pain Intensity 7 - Physical Exam General Appearance: no apparent distress, alert Eyes, Ears, Nose, Throat Exam: moist mucous membranes Neck Exam: non-tender, supple Cardiovascular/Respiratory Exam: chest non-tender, normal breath sounds, regular rate/rhythm, no respiratory distress Gastrointestinal/Abdominal Exam: non-tender, guarding Back Exam: normal inspection, No vertebral tenderness Hips Exam: bilateral: non-tender, normal inspection, normal range of motion, no evidence of injury Legs Exam: bilateral leg: non-tender, normal inspection, normal range of motion, no evidence of injury Knees Exam: right knee: pain, other (Tenderness palpation anterior aspect inferior pole right patella. Extensor mechanism intact. For bar knee ligament system intact. Compartments are soft. Cap refill less than 2 seconds.), left knee: non-tender, normal inspection, normal range of motion, no evidence of injury Ankle Exam: bilateral ankle: non-tender, normal inspection, normal range of motion, no evidence of injury Foot Exam: bilateral foot: non-tender, normal inspection, normal range of motion, no evidence of injury Neuro/Tendon Exam: normal sensation, normal motor functions Mental Status Exam: alert, oriented x 3, cooperative Skin Exam: normal color, warm, dry SpO2 Interpretation: normal SpO2: 98 O2 Delivery: Room Air - Course Nursing assessment & vital signs reviewed: Yes Ordered Tests: Active Orders 24 hr Category Date Time Status KNEE (3 VIEWS) Stat Exams 03/31/22 20:57 Ordered - Progress Progress: improved Progress Note: 03/31/22 21:37 X-ray essentially negative. Chronic features observed on x-ray. Patient neurovascular tact distally. Compartments soft. Cap refill less than 2 seconds. No indication for further work-up. Patient inclined pain medication. Will discharge home. Patient agrees to follow-up with her primary care doctor within 48 hours for evaluation. Portions of this note were created with voice recognition technology. There may be grammatical, spelling, punctuation or sound alike errors Counseled pt/family regarding: diagnosis, need for follow-up, rad results - Departure Departure Disposition: Home Clinical Impression: Knee pain Condition: Stable Critical Care Time: No Referrals: SIXTO HUNT MD [Primary Care Provider] - Follow up/PCP as directed Additional Instructions: Discharge/Care Plan SANTO PARHAM RA was seen on 03/31/22 in the Emergency Room. The patient was counseled regarding Diagnosis,Lab results, Imaging studies, need for follow up and when to return to the Emergency Room. Prescriptions given: Discharge Note I have spoken with the patient and/or caregivers. I have explained the patient's condition, diagnosis and treatment plan based on the information available to me at this time. I have answered the patient's and/or caregiver's questions and addressed any concerns. The patient and/or caregivers have as good understanding of the patient's diagnosis, condition and treatment plan as can be expected at this point. The vital signs have been stable. The patient's condition is stable and appropriate for discharge from the emergency department. The patient will pursue further outpatient evaluation with the primary care physician or other designated or consulting physician as outlined in the discharge instructions. The patient and/or caregivers are agreeable to this plan of care and follow-up instructions have been explained in detail. The patient and/or caregivers have received these instruction. The patient/and or caregivers are aware that any significant change in condition or worsening of symptoms should prompt an immediate return to this or the closest emergency department or call 911.
[2022-03-31 21:51] VITALS: BP 109/60; PULSE 83
--- NOTE | 2022-04-01 09:03 | XRAY ---
Indication: Pain. Comparison: None 3 view right knee demonstrates minimal medial joint space narrowing/spurring, small nonspecific effusion, and small posterior fabella. No other bony, articular, or soft tissue abnormalities.
== END 2022-03-31 21:50 | disposition home or self-care (01) ==
LOC: ED 20:21
DX: M25.561 Pain in right knee (principal); Z79.891 Long term (current) use of opiate analgesic; Z79.899 Other long term (current) drug therapy; Z72.0 Tobacco use
CPT/HCPCS: 73562; 99282

== ENCOUNTER 2022-12-02 08:37 | Day surgery (SDC) | payer OTHER ==
[2022-12-02] MEDS ORDERED: BUPIVACAINE 0.5% VIAL IJ ONE (08:38)
[2022-12-02] MEDS ORDERED: Depo-Medrol 40 MG/ML IM ONE (08:38)
[2022-12-02 09:31] LABS: HCG URINE TEST NEGATIVE (NEGATIVE)
[2022-12-02] MEDS ORDERED: DIPRIVAN 200 MG/20 ML IV ONE (10:40)
[2022-12-02] MEDS ORDERED: Lactated Ringers 1,000 ML IV ONE (13:09)
--- NOTE | 2022-12-02 18:37 | XRAY ---
Indication: Bilateral SI joint injection. Intraoperative fluoroscopy provided for 15 seconds. 4 digital spot image submitted for interpretation demonstrates posterior needle tip projecting over the expected left and right SI joint. Correlate with intraoperative findings/report.
--- NOTE | 2022-12-02 18:46 | XRAY ---
Indication: Right hip and right greater trochanter bursa injection. Intraoperative fluoroscopy provided for 31 seconds. 2 digital spot image submitted for interpretation demonstrates needle tip projecting lateral to right femur neck and right greater trochanter. Small amount of contrast injected for both needle tip placement. Correlate with intraoperative findings/report.
--- NOTE | 2022-12-02 18:56 | XRAY ---
15 seconds of fluoroscopy was used in surgery for a bilateral sacroiliac joint injection.
--- NOTE | 2022-12-02 18:56 | XRAY ---
31 seconds of fluoroscopy was used in surgery for a right intra-articular hip and greater trochanteric bursa injection.
== END 2022-12-02 11:10 | disposition home or self-care (01) ==
LOC: SDC-PAIN 08:37
PROVIDERS: ATTEND Psychiatry & Neurology Pain Medicine
DX: M46.1 Sacroiliitis, not elsewhere classified (principal); M70.61 Trochanteric bursitis, right hip; M16.11 Unilateral primary osteoarthritis, right hip; Z79.899 Other long term (current) drug therapy
CPT/HCPCS: 01992; 20610; 27096; 72202; 73502; 77002; 81025; G0260; J1030; J2704; Q9966

== ENCOUNTER 2023-01-31 15:41 | Emergency (ER) | payer OTHER ==
[2023-01-31 15:50] VITALS: TEMP 98.5
--- NOTE | 2023-01-31 16:07 | ERPHSYRPT ---
- History of Present Illness Time Seen by Provider: 01/31/23 16:01 Historian: patient, family Exam Limitations: no limitations Patient Subjective Stated Complaint: Pt states "I have had chest pain all morning and I am sick." Triage Nursing Assessment: Pt presented alert and oriented X 3, skin pwd. Pt amublates with an upright steady gait, able to speak in clear full sentences. Pt in no apparent respiratory distress. Pt resting on the bed without any obvious distress. Physician History: pt has been having chest pain and having workup with Dr. Bin Valdez - calcium score from earlier this week was zero. she is a smoker with high cholesterol. SHe had fev3er last night and has myalgias all over now. denies cough. CHest is clear ht reg without M. Abd soft nontender without peritoneal signs. Ext without edema. Hx confirmed independently with friend/relative in ER due to pt not sure on all detail of extensive family hx. Discussed risks/benefits of testing EKG, CXR, D DImer, Trops, CMP, CBC, Covid/RSV/Flu swabs, IV, CPK, UA, BNP, and Pt wishes to proceed - these were ordered and discussed results with pt. Timing/Duration: today Activities at Onset: none Location: substernal, shoulder Chest Pain Radiation: arm Severity of Pain-Max: moderate Severity of Pain-Current: moderate Associated Symptoms: nausea, fever Prior Chest Pain/Cardiac Workup: recently seen/treated Nitro Today/Relief: 0.4 mg x 1, provided by ED Aspirin Treatment Today: no aspirin today (pt reports allergy to ASA) Allergies/Adverse Reactions: aspirin Allergy (Severe, Verified 03/31/22 20:53) cefaclor [From Ceclor] Allergy (Severe, Verified 03/31/22 20:53) Anaphylactic Reaction clarithromycin [From Biaxin] Allergy (Severe, Verified 03/31/22 20:53) Penicillins Allergy (Severe, Verified 03/31/22 20:53) Anaphylactic Reaction sulfamethoxazole [From Bactrim] Allergy (Severe, Verified 03/31/22 20:53) trimethoprim [From Bactrim] Allergy (Severe, Verified 03/31/22 20:53) Home Medications: Duloxetine HCl [Cymbalta] 60 mg PO DAILY 09/07/20 [History] Aripiprazole 10 mg [Abilify 10 MG] 5 mg PO HS 03/31/22 [History] Gabapentin 600 mg PO TID 03/31/22 [History] Topiramate [Topamax] 50 mg PO BID 03/31/22 [History] Atorvastatin Calcium 40 mg PO HS 01/31/23 [History] Clopidogrel Bisulfate [PLAVIX Tablet] 75 mg PO DAILY 01/31/23 [History] Famotidine [Pepcid] 40 mg PO HS 01/31/23 [History] Nitroglycerin 0.4 mg Tablet [Nitrostat 0.4 MG Tablet] 0.4 mg SL DAILY PRN 01/31/23 [History] Hx Tetanus, Diphtheria Vaccination/Date Given: Yes Hx Influenza Vaccination/Date Given: No Hx Pneumococcal Vaccination/Date Given: No Immunizations Up to Date: No Travel Risk - International Travel Have you traveled outside of the country in past 3 weeks: No - Coronavirus Screening Are you exhibiting any of the following symptoms?: No Close contact with a COVID-19 positive Pt in past 14-21 Days: No - Vaccine Status Have you recieved a Covid-19 vaccination: Yes [employer]: [employer] - Review of Systems Constitutional: Fever, No Chills Eyes: No Symptoms Ears, Nose, & Throat: No Symptoms Respiratory: Dyspnea, No Cough Cardiac: Chest Pain, No Edema, No Syncope Abdominal/Gastrointestinal: Nausea, No Abdominal Pain, No Vomiting, No Diarrhea Genitourinary Symptoms: No Dysuria Musculoskeletal: No Back Pain, No Neck Pain Skin: No Rash Neurological: No Dizziness, No Focal Weakness, No Sensory Changes Psychological: No Symptoms Endocrine: No Symptoms Hematologic/Lymphatic: No Symptoms Immunological/Allergic: No Symptoms All Other Systems: Reviewed and Negative - Past Medical History Pertinent Past Medical History: Yes Neurological History: Migraines, Other ENT History: No Pertinent History Cardiac History: No Pertinent History Respiratory History: Asthma, Bronchitis Endocrine Medical History: No Pertinent History Musculoskeletal History: Osteoarthritis GI Medical History: No Pertinent History History: No Pertinent History Psycho-Social History: No Pertinent History Female Reproductive Disorders: No Pertinent History Other Medical History: body aches. white matter disease - Past Surgical History Past Surgical History: Yes Neuro Surgical History: No Pertinent History Cardiac: No Pertinent History Respiratory: No Pertinent History Gastrointestinal: Appendectomy Genitourinary: No Pertinent History Musculoskeletal: Orthopedic Surgery Female Surgical History: Dilation & Curettage, Section, Tubal Ligation Other Surgical History: ablasion, 2 left shoulder, 2 left pinky, jorden carpal tunnel, spinal and hip injections - Social History Smoking Status: Former smoker How long have you smoked: may 2022 Exposure to second hand smoke: No Drug Use: none Patient Lives Alone: No - Female History Hx Last Menstrual Period: 2016 ablasion Hx Now: No - Nursing Vital Signs Nursing Vital Signs: Initial Vital Signs Temperature 98.5 F 01/31/23 15:43 Pulse Rate 94 H 01/31/23 15:43 Respiratory Rate 20 01/31/23 15:43 Blood Pressure 134/93 01/31/23 15:43 O2 Sat by Pulse Oximetry 100 01/31/23 15:43 Pain Scale Pain Intensity 0 - Physical Exam General Appearance: no apparent distress, alert Eye Exam: PERRL/EOMI, eyes nml inspection Ears, Nose, Throat Exam: normal ENT inspection, moist mucous membranes Neck Exam: normal inspection, non-tender, supple, full range of motion Respiratory Exam: normal breath sounds, lungs clear, airway intact, No respiratory distress Cardiovascular Exam: regular rate/rhythm, normal heart sounds Gastrointestinal/Abdomen Exam: soft, No tenderness, No mass Pelvic Exam: deferred Back Exam: normal inspection, No CVA tenderness, No vertebral tenderness Extremity Exam: normal inspection, normal range of motion Neurologic Exam: alert, oriented x 3, cooperative, normal mood/affect, sensation nml, No motor deficits Skin Exam: normal color, warm, dry SpO2 Interpretation: normal SpO2: 100 O2 Delivery: Room Air - Course Nursing assessment & vital signs reviewed: Yes EKG Interpreted by Me: Sinus Rhythm, NORMAL AXIS, NORMAL INTERVALS, NORMAL QRS, Non-specific ST Changes Ordered Tests: Active Orders 24 hr Category Date Time Status [employer]er STAT Care 01/31/23 16:12 Active EKG-ER Only STAT Care 01/31/23 16:10 Active IV Insertion STAT Care 01/31/23 16:10 Active Pulse Oximetry (ED) STAT Care 01/31/23 16:10 Active CHEST 1 VIEW (PORTABLE) Stat Exams 01/31/23 16:11 Completed AMYLASE Stat Lab 01/31/23 16:20 Completed CBC W DIFF Stat Lab 01/31/23 16:20 Completed CK-Creatinine Phosphokinase Stat Lab 01/31/23 16:20 Completed CMP Stat Lab 01/31/23 16:20 Completed D-DIMER QUANTITATIVE Stat Lab 01/31/23 16:20 Completed LIPASE Stat Lab 01/31/23 16:20 Completed Lactic Acid Stat Lab 01/31/23 16:15 Completed NT PRO BNPII Stat Lab 01/31/23 16:20 Completed TROPONIN Q4H Lab 01/31/23 16:20 Completed TROPONIN Q4H Lab 01/31/23 19:45 Completed TROPONIN Q4H Lab 02/01/23 00:15 Ordered UA W/RFX UR CULTURE Stat Lab 01/31/23 16:11 Completed Medication Summary Discontinued Medications Generic Name Dose Route Start Last Admin Trade Name Freq PRN Reason Stop Dose Admin Sodium Chloride 1,000 mls @ 999 mls/hr 01/31/23 16:10 01/31/23 17:40 Sodium Chloride 0.9% 1000 Ml IV 01/31/23 17:10 Infused .Q1H1M STA Infusion Sodium Chloride Confirm 01/31/23 16:29 Sodium Chloride 0.9% 1000 Ml Administered 01/31/23 16:30 Dose 1,000 mls @ ud .ROUTE .STK-MED ONE Nitroglycerin 0.4 mg 01/31/23 16:22 01/31/23 16:31 Nitroglycerin 0.4 Mg (Ed) 0.4 Mg Tab.Subl SL 01/31/23 16:23 0.4 mg STAT ONE Administration Nitroglycerin Confirm 01/31/23 16:29 Nitroglycerin 0.4 Mg (Ed) 0.4 Mg Tab.Subl Administered 01/31/23 16:30 Dose 0.4 mg SL .STK-MED ONE Ondansetron HCl 4 mg 01/31/23 16:16 01/31/23 16:30 Ondansetron Hcl 4 Mg/2 Ml Vial IV 01/31/23 16:17 4 mg STAT ONE Administration Ondansetron HCl Confirm 01/31/23 16:29 Ondansetron Hcl 4 Mg/2 Ml Vial Administered 01/31/23 16:30 Dose 4 mg .ROUTE .STK-MED ONE Lab/Rad Data: Laboratory Result Diagrams 01/31/23 16:20 01/31/23 16:20 Laboratory Results 01/31/23 01/31/23 01/31/23 Range/Units 19:45 16:30 16:20 WBC (4.0-10.5) x10^3/uL RBC (4.1-5.4) x10^6/uL Hgb (12.0-16.0) g/dL Hct (35-47) % MCV (78-100) fL MCH (26-32) pg MCHC (32-36) g/dL RDW (11.5-14.0) % Plt Count (150-450) x10^3/uL MPV (7.5-11.0) fL Gran % (36.0-66.0) % Immature Gran % (Auto) (0.00-0.4) % Nucleat RBC Rel Count (0.00-0.1) % Eos # (Auto) (0-0.5) x10^3/uL Immature Gran # (Auto) (0.00-0.03) x10^3u/L Absolute Lymphs (auto) (1.0-4.6) x10^3/uL Absolute Monos (auto) (0.0-1.3) x10^3/uL Absolute Nucleated RBC (0.00-0.01) x10^3u/L Lymphocytes % (24.0-44.0) % Monocytes % (0.0-12.0) % Eosinophils % (0.00-5.0) % Basophils % (0.0-0.4) % Absolute Granulocytes (1.4-6.9) x10^3/uL Basophils # (0-0.4) x10^3/uL D-Dimer (0.0-0.50) mg/L Sodium (137-145) mmol/L Potassium (3.5-5.1) mmol/L Chloride (98-107) mmol/L Carbon Dioxide (22-30) mmol/L Anion Gap (5-15) MEQ/L BUN (7-17) mg/dL Creatinine (0.52-1.04) mg/dL Estimated GFR ML/MIN Glucose (74-106) mg/dL Lactic Acid (0.4-2.0) Calcium (8.4-10.2) mg/dL Total Bilirubin (0.2-1.3) mg/dL AST (14-36) U/L ALT (0-35) U/L Alkaline Phosphatase (38-126) U/L Creatine Kinase (30-135) U/L Troponin I < 0.012 < 0.012 (0.000-0.034) ng/mL NT-Pro-B Natriuret Pep (<300) pg/mL Serum Total Protein (6.3-8.2) g/dL Albumin (3.5-5.0) g/dL Amylase (30-110) U/L Lipase (23-300) U/L Urine Color (Yellow) Urine Appearance (Clear) Urine pH (4.6-8.0) Ur Specific [place] (1.005-1.030) Urine Protein (Negative) Urine Glucose (UA) (Negative) mg/dL Urine Ketones (Negative) Urine Blood (Negative) Urine Nitrite (Negative) Urine Bilirubin (Negative) Urine Urobilinogen (0.2) mg/dL Ur Leukocyte Esterase (Negative) U Hyaline Cast (Auto) (0-2) /LPF Urine Microscopic RBC (0-5) /HPF Urine Microscopic WBC (0-5) /HPF Ur Epithelial Cells (None Seen) /HPF Urine Bacteria (None Seen) /HPF Urine Culture Reflexed (NO) Influenza Type A Ag NEGATIVE (NEGATIVE) Influenza Type B Ag NEGATIVE (NEGATIVE) RSV (PCR) NEGATIVE (NEGATIVE) SARS-CoV-2 (PCR) POSITIVE A (NEGATIVE) Slides for Path Review 01/31/23 01/31/23 01/31/23 Range/Units 16:20 16:20 16:20 WBC 4.1 (4.0-10.5) x10^3/uL RBC 4.48 (4.1-5.4) x10^6/uL Hgb 12.6 (12.0-16.0) g/dL Hct 39.4 (35-47) % MCV 87.9 (78-100) fL MCH 28.1 (26-32) pg MCHC 32.0 (32-36) g/dL RDW 13.9 (11.5-14.0) % Plt Count 136 L (150-450) x10^3/uL MPV 12.4 H (7.5-11.0) fL Gran % 74.1 H (36.0-66.0) % Immature Gran % (Auto) 0.2 (0.00-0.4) % Nucleat RBC Rel Count 0.0 (0.00-0.1) % Eos # (Auto) 0.01 (0-0.5) x10^3/uL Immature Gran # (Auto) 0.01 (0.00-0.03) x10^3u/L Absolute Lymphs (auto) 0.42 L (1.0-4.6) x10^3/uL Absolute Monos (auto) 0.62 (0.0-1.3) x10^3/uL Absolute Nucleated RBC 0.00 (0.00-0.01) x10^3u/L Lymphocytes % 10.2 L (24.0-44.0) % Monocytes % 15.1 H (0.0-12.0) % Eosinophils % 0.2 (0.00-5.0) % Basophils % 0.2 (0.0-0.4) % Absolute Granulocytes 3.03 (1.4-6.9) x10^3/uL Basophils # 0.01 (0-0.4) x10^3/uL D-Dimer 0.31 (0.0-0.50) mg/L Sodium 140 (137-145) mmol/L Potassium 3.5 (3.5-5.1) mmol/L Chloride 106 (98-107) mmol/L Carbon Dioxide 24 (22-30) mmol/L Anion Gap 13.3 (5-15) MEQ/L BUN 7 (7-17) mg/dL Creatinine 0.87 (0.52-1.04) mg/dL Estimated GFR > 60.0 ML/MIN Glucose 90 (74-106) mg/dL Lactic Acid (0.4-2.0) Calcium 8.7 (8.4-10.2) mg/dL Total Bilirubin 0.20 (0.2-1.3) mg/dL AST 20 (14-36) U/L ALT 21 (0-35) U/L Alkaline Phosphatase 64 (38-126) U/L Creatine Kinase 63 (30-135) U/L Troponin I (0.000-0.034) ng/mL NT-Pro-B Natriuret Pep 333 (<300) pg/mL Serum Total Protein 6.7 (6.3-8.2) g/dL Albumin 3.7 (3.5-5.0) g/dL Amylase 44 (30-110) U/L Lipase 54 (23-300) U/L Urine Color (Yellow) Urine Appearance (Clear) Urine pH (4.6-8.0) Ur Specific [place] (1.005-1.030) Urine Protein (Negative) Urine Glucose (UA) (Negative) mg/dL Urine Ketones (Negative) Urine Blood (Negative) Urine Nitrite (Negative) Urine Bilirubin (Negative) Urine Urobilinogen (0.2) mg/dL Ur Leukocyte Esterase (Negative) U Hyaline Cast (Auto) (0-2) /LPF Urine Microscopic RBC (0-5) /HPF Urine Microscopic WBC (0-5) /HPF Ur Epithelial Cells (None Seen) /HPF Urine Bacteria (None Seen) /HPF Urine Culture Reflexed (NO) Influenza Type A Ag (NEGATIVE) Influenza Type B Ag (NEGATIVE) RSV (PCR) (NEGATIVE) SARS-CoV-2 (PCR) (NEGATIVE) Slides for Path Review YES 01/31/23 01/31/23 Range/Units 16:15 16:11 WBC (4.0-10.5) x10^3/uL RBC (4.1-5.4) x10^6/uL Hgb (12.0-16.0) g/dL Hct (35-47) % MCV (78-100) fL MCH (26-32) pg MCHC (32-36) g/dL RDW (11.5-14.0) % Plt Count (150-450) x10^3/uL MPV (7.5-11.0) fL Gran % (36.0-66.0) % Immature Gran % (Auto) (0.00-0.4) % Nucleat RBC Rel Count (0.00-0.1) % Eos # (Auto) (0-0.5) x10^3/uL Immature Gran # (Auto) (0.00-0.03) x10^3u/L Absolute Lymphs (auto) (1.0-4.6) x10^3/uL Absolute Monos (auto) (0.0-1.3) x10^3/uL Absolute Nucleated RBC (0.00-0.01) x10^3u/L Lymphocytes % (24.0-44.0) % Monocytes % (0.0-12.0) % Eosinophils % (0.00-5.0) % Basophils % (0.0-0.4) % Absolute Granulocytes (1.4-6.9) x10^3/uL Basophils # (0-0.4) x10^3/uL D-Dimer (0.0-0.50) mg/L Sodium (137-145) mmol/L Potassium (3.5-5.1) mmol/L Chloride (98-107) mmol/L Carbon Dioxide (22-30) mmol/L Anion Gap (5-15) MEQ/L BUN (7-17) mg/dL Creatinine (0.52-1.04) mg/dL Estimated GFR ML/MIN Glucose (74-106) mg/dL Lactic Acid 0.8 (0.4-2.0) Calcium (8.4-10.2) mg/dL Total Bilirubin (0.2-1.3) mg/dL AST (14-36) U/L ALT (0-35) U/L Alkaline Phosphatase (38-126) U/L Creatine Kinase (30-135) U/L Troponin I (0.000-0.034) ng/mL NT-Pro-B Natriuret Pep (<300) pg/mL Serum Total Protein (6.3-8.2) g/dL Albumin (3.5-5.0) g/dL Amylase (30-110) U/L Lipase (23-300) U/L Urine Color Yellow (Yellow) Urine Appearance Cloudy A (Clear) Urine pH 7.0 (4.6-8.0) Ur Specific [place] 1.010 (1.005-1.030) Urine Protein Negative (Negative) Urine Glucose (UA) Negative (Negative) mg/dL Urine Ketones Negative (Negative) Urine Blood Negative (Negative) Urine Nitrite Negative (Negative) Urine Bilirubin Negative (Negative) Urine Urobilinogen 1.0 A (0.2) mg/dL Ur Leukocyte Esterase Trace A (Negative) U Hyaline Cast (Auto) NONE SEEN (0-2) /LPF Urine Microscopic RBC 0-2 (0-5) /HPF Urine Microscopic WBC 6-10 A (0-5) /HPF Ur Epithelial Cells Few (None Seen) /HPF Urine Bacteria Rare A (None Seen) /HPF Urine Culture Reflexed NO (NO) Influenza Type A Ag (NEGATIVE) Influenza Type B Ag (NEGATIVE) RSV (PCR) (NEGATIVE) SARS-CoV-2 (PCR) (NEGATIVE) Slides for Path Review - Progress Progress: improved, re-examined Air Movement: good Progress Note: 01/31/23 20:27 discussed risks/benefits of tx keflex for UTI and pt wishes to proceed . discussed paxlovid for covid also but interacts with plavix and best to avoid and pt understands. also discussed that although cardiac negative so far and calc score 0 she still could have cardiac conditions and as a complication from covid and she prefers outpt management to hosp and has the capacity to make this choice. 01/31/23 20:28 01/31/23 20:40 Blood Culture(s) Obtained: No Antibiotics given: Yes Counseled pt/family regarding: lab results, diagnosis, need for follow-up, rad results Medical Desision Making - Independent Historian Additional History obtained from: Relative/friend - Diagnostic Testing Diagnostic test were ordered, analyzed, and reviewed by me: Yes Radiological Interpretation: Reviewed by me - Risk of complications The pt has a mod risk of morbidity or mortality based on: Need for prescription drug management The pt has a high risk of morbidity or mortality based on: Decision regarding hospitilization or escalation of hosp level of care - Departure Departure Disposition: Home Clinical Impression: COVID-19, UTI (urinary tract infection), Decreased platelet count, chest pain Condition: Good Critical Care Time: No Referrals: SIXTO HUNT MD [Primary Care Provider] - Follow up/PCP as directed Instructions: Chest Pain (DC), COVID-19 (DC), Urinary Tract Infection, Adult ED Additional Instructions: followup with your dr for urinary tract infection recheck, cardiac workup to continue, return meantime if short of breath , swelling, redness of legs or other concerns as there is an increased risk of complications with covid. also on paxlovid rebound can occur and re-isolate and retest if symptoms recur. Prescriptions: Nitrofurantoin Macro 100 mg [Macrobid 100MG Capsule] 100 mg PO BID #20 cap
[2023-01-31] MEDS ORDERED: Sodium Chloride 0.9% 1000 ML 1,000 ML IV STA (16:10)
[2023-01-31] MEDS ORDERED: Zofran 4 MG/2 ML VIAL IV ONE (16:16)
[2023-01-31] MEDS ORDERED: Nitrostat 0.4 MG (ED) SL ONE ×2 (16:22→16:29)
[2023-01-31 16:23] LABS: Absolute Neutrophil Ct (ANC) 3.03 x10^3/uL (1.4-6.9); BASOPHIL % 0.2 % (0.0-0.4); Basophil (Absolute #) 0.01 x10^3/uL (0-0.4); Eosinophil % 0.2 % (0.00-5.0); Eosinophil (Absolute #) 0.01 x10^3/uL (0-0.5); Hematocrit 39.4 % (35-47); Hemoglobin 12.6 g/dL (12.0-16.0); IMMATURE GRAN # 0.01 x10^3u/L (0.00-0.03); IMMATURE GRAN % 0.2 % (0.00-0.4); Lymphocyte (Absolute #) 0.42 x10^3/uL (1.0-4.6); Lymphocytes % 10.2 % (24.0-44.0); Mean Cell Volume 87.9 fL (78-100); Mean Corpuscular Hemoglobin 28.1 pg (26-32); Mean Platelet Volume 12.4 fL (7.5-11.0); Monocyte (Absolute #) 0.62 x10^3/uL (0.0-1.3); Monocytes % 15.1 % (0.0-12.0); Neutrophil % 74.1 % (36.0-66.0); Platelet Count 136 x10^3/uL (150-450); Red Blood Count 4.48 x10^6/uL (4.1-5.4); Red Cell Distribution Width 13.9 % (11.5-14.0); White Blood Count 4.1 x10^3/uL (4.0-10.5)
[2023-01-31] MEDS ORDERED: Zofran 4 MG/2 ML VIAL ONE (16:29)
[2023-01-31] MEDS ORDERED: Sodium Chloride 0.9% 1000 ML 1,000 ML ONE (16:29)
[2023-01-31 16:59] LABS: ALBUMIN 3.7 g/dL (3.5-5.0); ALKALINE PHOSPHATASE 64 U/L (38-126); AMYLASE 44 U/L (30-110); ANION GAP 13.3 MEQ/L (5-15); BLOOD UREA NITROGEN 7 mg/dL (7-17); CHLORIDE 106 mmol/L (98-107); CK-Creatinine Phosphokinase 63 U/L (30-135); Calcium 8.7 mg/dL (8.4-10.2); Carbon Dioxide 24 mmol/L (22-30); Creatinine 1 0.87 mg/dL (0.52-1.04); EST GLOMERULAR FILTRATION RATE > 60.0 ML/MIN; Glucose 90 mg/dL (74-106); LIPASE 54 U/L (23-300); NT PRO BNPII 333 pg/mL (<300); Potassium 3.5 mmol/L (3.5-5.1); SGOT/AST 20 U/L (14-36); SGPT/ALT 21 U/L (0-35); SODIUM 140 mmol/L (137-145); Total Protein 6.7 g/dL (6.3-8.2)
[2023-01-31 17:13] LABS: INFLUENZA A NEGATIVE (NEGATIVE); INFLUENZA B NEGATIVE (NEGATIVE); RESPIRATORY SYNCTIAL VIRUS NEGATIVE (NEGATIVE)
[2023-01-31 17:18] LABS: SARS-CoV-2 Xpert Express POSITIVE (NEGATIVE)
[2023-01-31 17:58] LABS: Slide Review 1 YES
[2023-01-31 18:30] LABS: ADD URINE CULTURE? NO (NO); Appearance Cloudy (Clear); Bacteria Rare /HPF (None Seen); Bilirubin Negative (Negative); Blood Negative (Negative); Epithelial Cells Few /HPF (None Seen); Glucose, Urine Negative (Negative); Hyaline Casts NONE SEEN /LPF (0-2); Ketones Negative (Negative); Leukocyte Esterase Trace (Negative); Nitrite Negative (Negative); Protein,Urine Dip Negative (Negative); RBC 0-2 /HPF (0-5)
--- NOTE | 2023-01-31 20:05 | XRAY ---
Indication: Chest pain. Comparison: None Portable chest demonstrates normal heart, lungs, and bony thorax.
[2023-01-31 20:11] VITALS: BP 125/86; PULSE 83; RESP 23
[2023-01-31 20:28] VITALS: O2SAT 100
[2023-01-31] MEDS ORDERED: Macrobid 100MG Capsule ONE (20:40)
[2023-01-31] MEDS ORDERED: Macrobid 100MG Capsule PO ONE (20:42)
== END 2023-01-31 21:00 | disposition home or self-care (01) ==
LOC: ED 15:41
DX: U07.1 COVID-19 (principal); N39.0 Urinary tract infection, site not specified; D69.6 Thrombocytopenia, unspecified; R07.9 Chest pain, unspecified; R50.9 Fever, unspecified; M79.10 Myalgia, unspecified site; Z79.02 Long term (current) use of antithrombotics/antiplatelets; Z79.899 Other long term (current) drug therapy
CPT/HCPCS: 0241U; 36000; 36415; 71045; 80053; 81001; 82150; 82550; 83605; 83690; 83880; 84484; 85025; 85379; 93005; 93041; 94760; 96374; 99284; J2405; A9270-GY

== ENCOUNTER 2023-02-08 09:53 | Emergency (ER) | payer OTHER ==
--- NOTE | 2023-02-08 09:55 | ERPHSYRPT ---
- History of Present Illness Time Seen by Provider: 02/08/23 09:55 Source: patient Exam Limitations: no limitations Physician History: This is a morbidly obese 47-year-old white female patient who was diagnosed with COVID-19 infection approximately 8 days ago. Her symptoms have improved however she has had persistent sore throat and difficulty swallowing because of her sore throat in the last few days. She denies stridor and she denies wheezing. She does not have chest pain. She does not have shortness of breath. She denies having fever or cough. Patient does have a history of asthma, bronchitis, hyperlipidemia and migraine headaches. Patient states she is allergic to several different antibiotics. She does states she can take a Z-Wojciech. Timing/Duration: day(s), worse Cough Quality/Degree: no cough Possible Cause: no prior episodes Modifying Factors: Improves With: other (Painful swallowing) Associated Symptoms: sore throat, No fever, No chest pain/soreness, No cough, No shortness of breath Allergies/Adverse Reactions: aspirin Allergy (Severe, Verified 02/08/23 10:09) cefaclor [From Ceclor] Allergy (Severe, Verified 02/08/23 10:09) Anaphylactic Reaction clarithromycin [From Biaxin] Allergy (Severe, Verified 02/08/23 10:09) Penicillins Allergy (Severe, Verified 02/08/23 10:09) Anaphylactic Reaction sulfamethoxazole [From Bactrim] Allergy (Severe, Verified 02/08/23 10:09) trimethoprim [From Bactrim] Allergy (Severe, Verified 02/08/23 10:09) Home Medications: Duloxetine HCl [Cymbalta] 60 mg PO DAILY 09/07/20 [History] Aripiprazole 10 mg [Abilify 10 MG] 5 mg PO HS 03/31/22 [History] Gabapentin 600 mg PO TID 03/31/22 [History] Topiramate [Topamax] 50 mg PO BID 03/31/22 [History] Atorvastatin Calcium 40 mg PO HS 01/31/23 [History] Clopidogrel Bisulfate [PLAVIX Tablet] 75 mg PO DAILY 01/31/23 [History] Famotidine [Pepcid] 40 mg PO HS 01/31/23 [History] Nitroglycerin 0.4 mg Tablet [Nitrostat 0.4 MG Tablet] 0.4 mg SL DAILY PRN 01/31/23 [History] Hx Tetanus, Diphtheria Vaccination/Date Given: Yes Hx Influenza Vaccination/Date Given: No Hx Pneumococcal Vaccination/Date Given: No Travel Risk - International Travel Have you traveled outside of the country in past 3 weeks: No - Coronavirus Screening Are you exhibiting any of the following symptoms?: No Close contact with a COVID-19 positive Pt in past 14-21 Days: No - Vaccine Status Have you recieved a Covid-19 vaccination: Yes 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: [employer] - Review of Systems Constitutional: No Symptoms Eyes: No Symptoms Ears, Nose, & Throat: Throat Pain, Other (Painful swallowing) Respiratory: No Symptoms Cardiac: No Symptoms Abdominal/Gastrointestinal: No Symptoms Genitourinary Symptoms: No Symptoms Musculoskeletal: No Symptoms Skin: No Symptoms Neurological: No Symptoms Psychological: No Symptoms Endocrine: No Symptoms Hematologic/Lymphatic: No Symptoms Immunological/Allergic: No Symptoms All Other Systems: Reviewed and Negative - Past Medical History Pertinent Past Medical History: Yes Neurological History: Migraines, Other ENT History: No Pertinent History Cardiac History: No Pertinent History Respiratory History: Asthma, Bronchitis Endocrine Medical History: No Pertinent History Musculoskeletal History: Osteoarthritis GI Medical History: No Pertinent History History: No Pertinent History Psycho-Social History: No Pertinent History Female Reproductive Disorders: No Pertinent History Other Medical History: body aches. white matter disease - Past Surgical History Past Surgical History: Yes Neuro Surgical History: No Pertinent History Cardiac: No Pertinent History Respiratory: No Pertinent History Gastrointestinal: Appendectomy Genitourinary: No Pertinent History Musculoskeletal: Orthopedic Surgery Female Surgical History: Dilation & Curettage, Section, Tubal Ligation Other Surgical History: ablasion, 2 left shoulder, 2 left pinky, jorden carpal tunnel, spinal and hip injections - Social History Smoking Status: Former smoker How long have you smoked: may 2022 Exposure to second hand smoke: No Drug Use: none Patient Lives Alone: No - Nursing Vital Signs Nursing Vital Signs: Initial Vital Signs Blood Pressure 120/78 02/08/23 10:18 O2 Sat by Pulse Oximetry 100 02/08/23 10:18 Pain Scale Pain Intensity 0 - Physical Exam General Appearance: no apparent distress, alert, anxiety, obese Eye Exam: PERRL/EOMI, eyes nml inspection Ears, Nose, Throat Exam: moist mucous membranes, pharyngeal erythema (With pharyngeal swelling) Neck Exam: normal inspection, non-tender, supple, full range of motion Respiratory Exam: normal breath sounds, lungs clear, airway intact, No chest tenderness, No respiratory distress Cardiovascular Exam: regular rate/rhythm, normal heart sounds, normal peripheral pulses Gastrointestinal/Abdomen Exam: soft, normal bowel sounds, No tenderness Pelvic Exam: not done Rectal Exam: not done Extremity Exam: normal inspection, normal range of motion, pelvis stable Neurologic Exam: alert, oriented x 3, cooperative, 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, normal mood/affect, nml cerebellar function, nml station & gait, sensation nml Skin Exam: normal color, warm, dry Lymphatic Exam: No adenopathy SpO2 Interpretation: normal O2 Delivery: Room Air - Course Nursing assessment & vital signs reviewed: Yes Ordered Tests: Medication Summary Discontinued Medications Generic Name Dose Route Start Last Admin Trade Name Freq PRN Reason Stop Dose Admin Hydrocodone Bitart/Acetaminophen 10 ml 02/08/23 10:30 02/08/23 10:52 Hydrocodone/Acetaminophen 5 Ml Udcup PO 02/08/23 10:31 10 ml STAT STA Administration Hydrocodone Bitart/Acetaminophen Confirm 02/08/23 10:50 Hydrocodone/Acetaminophen 5 Ml Udcup Administered 02/08/23 10:51 Dose 10 ml .ROUTE .STK-MED ONE Methylprednisolone Sodium 0 mg 02/08/23 10:30 02/08/23 10:52 Succinate 125 mg/ Sterile IM 02/08/23 10:31 125 mg Water 2 ml STAT ONE Administration Methylprednisolone Sodium Succinate Confirm 02/08/23 10:50 Methylprednis Sod Succ 125 Mg/2 Ml Vial Administered 02/08/23 10:51 Dose 125 mg .ROUTE .STK-MED ONE Sterile Water Confirm 02/08/23 10:51 Water For Injection,Sterile 10 Ml Vial Administered 02/08/23 10:52 Dose 10 ml IJ .STK-MED ONE Lab/Rad Data: Laboratory Results 02/08/23 Range/Units 10:45 Influenza Type A Ag NEGATIVE (NEGATIVE) Influenza Type B Ag NEGATIVE (NEGATIVE) RSV (PCR) NEGATIVE (NEGATIVE) SARS-CoV-2 (PCR) POSITIVE A (NEGATIVE) Group A Strep Antibody DETECTED (NEGATIVE) - Progress Progress: improved, re-examined Air Movement: good Progress Note: 02/08/23 11:32 This patient's medical issue is 1 of low complexity. Level complexity in the work-up performed is based on review of the patient's past medical history, review of the patient's drug allergy list, review of the patient's medication list, history of present illness and physical findings on examination. The work-up in this patient includes group A strep swab and viral swabs. 02/08/23 11:36 I had Irving, our emergency department nurse recheck with the patient that she stated that she has no problems with taking Z-Wojciech. He confirms that the patient does not have any problems taking Z-Wojciech. Blood Culture(s) Obtained: No Counseled pt/family regarding: lab results, diagnosis, need for follow-up Medical Desision Making - Diagnostic Testing Diagnostic test were ordered, analyzed, and reviewed by me: Yes - Risk of complications The pt has a mod risk of morbidity or mortality based on: Need for prescription drug management - Departure Departure Disposition: Home Clinical Impression: Strep pharyngitis, COVID-19 virus infection Condition: Stable Critical Care Time: No Referrals: SIXTO HUNT MD [Primary Care Provider] - Follow up/PCP as directed Additional Instructions: Drink plenty of clear liquids. Take your antibiotics and your steroid as well as your cough medicine as prescribed. Follow-up with your primary care provider, today, to make arranges for follow-up appointment in the next 3 to 5 days Prescriptions: Hydrocodone/Acetaminophen [Hydrocodone-Acetamn 7.5-325/15] 10 ml PO Q8H PRN PRN #120 ml MDD 30 ml PRN Reason: Cough Prednisone 10 mg [Deltasone 10 mg] 10 mg PO TID #12 tablet Azithromycin 250 mg [Zithromax 250 MG TABLET] 250 mg PO ZPACK #6 tablet
[2023-02-08 10:22] VITALS: TEMP 97.5
[2023-02-08] MEDS ORDERED: solu-MEDROL 125 MG, Sterile H2O 10 ml 2 ML IM ONE ×2 (10:30)
[2023-02-08] MEDS ORDERED: HYDROCODONE-ACETAMIN 2.5-108/5 ML SOLUTION PO STA (10:30)
[2023-02-08] MEDS ORDERED: HYDROCODONE-ACETAMIN 2.5-108/5 ML SOLUTION ONE (10:50)
[2023-02-08] MEDS ORDERED: solu-MEDROL ONE (10:50)
[2023-02-08] MEDS ORDERED: Sterile H2O 10 ml IJ ONE (10:51)
[2023-02-08 11:24] LABS: Group A Strep DETECTED (NEGATIVE)
[2023-02-08 11:26] VITALS: BP 114/83
[2023-02-08 11:38] LABS: INFLUENZA A NEGATIVE (NEGATIVE); INFLUENZA B NEGATIVE (NEGATIVE); RESPIRATORY SYNCTIAL VIRUS NEGATIVE (NEGATIVE)
[2023-02-08 11:40] LABS: SARS-CoV-2 Xpert Express POSITIVE (NEGATIVE)
[2023-02-08 11:59] VITALS: PULSE 95; RESP 16; O2SAT 95
== END 2023-02-08 11:59 | disposition home or self-care (01) ==
LOC: ED 09:53
DX: J02.0 Streptococcal pharyngitis (principal); U07.1 COVID-19; Z79.891 Long term (current) use of opiate analgesic; Z79.52 Long term (current) use of systemic steroids; Z79.02 Long term (current) use of antithrombotics/antiplatelets; Z79.899 Other long term (current) drug therapy
CPT/HCPCS: 0241U; 87651; 96372; 99283; J2930; A9270-GY

== ENCOUNTER 2024-05-03 11:43 | Day surgery (SDC) | payer OTHER, BC ==
[2024-05-03] MEDS ORDERED: BUPIVACAINE 0.5% VIAL IJ ONE (11:44)
[2024-05-03] MEDS ORDERED: Depo-Medrol 40 MG/ML IM ONE (11:44)
[2024-05-03 12:17] LABS: HCG URINE TEST NEGATIVE (NEGATIVE)
[2024-05-03] MEDS ORDERED: DIPRIVAN 200 MG/20 ML IV ONE (13:39)
--- NOTE | 2024-05-03 15:01 | XRAY ---
Indication: Right hip and bilateral greater trochanter bursa injection. Intraoperative fluoroscopy provided for 32 seconds. 4 digital spot image submitted for interpretation demonstrates needle tips lateral to left/right greater trochanters and right femur neck. Small amount of contrast injected for all needle tip placement. Correlate with intraoperative findings/report.
--- NOTE | 2024-05-03 17:05 | XRAY ---
32 seconds of fluoroscopy was used in surgery for a right intra-articular hip and bilateral greater trochanteric bursa injection.
== END 2024-05-03 14:08 | disposition home or self-care (01) ==
LOC: SDC-PAIN 11:43
PROVIDERS: ATTEND Psychiatry & Neurology Pain Medicine
DX: M16.11 Unilateral primary osteoarthritis, right hip (principal); M70.62 Trochanteric bursitis, left hip; M70.61 Trochanteric bursitis, right hip
CPT/HCPCS: 20610; 73502; 77002; 77003; 81025; J2704; Q9966

== ENCOUNTER 2024-07-13 08:51 | Emergency (ER) | payer OTHER, BC ==
--- NOTE | 2024-07-13 10:07 | ERPHSYRPT ---
- History of Present Illness Time Seen by Provider: 07/13/24 09:29 Source: patient, family Exam Limitations: no limitations Patient Subjective Stated Complaint: Pt c/o of N&V, diarrhea, body aches for 3 days Triage Nursing Assessment: Pt drove self to the ER, vitals wnl, rates generalized body aches and pains as 7/10, pulses normal, skin n/w/d, vomiting for 3 days, has been able to keep a small amount down, no difficulty breathing, doesn't appear to be in any distress Physician History: 48 years old female with history of anxiety depression, migraine, back pain presented in the ER with 2 days history of progressively worsening flulike symptoms with aches and pains all over, nonproductive cough, generalized abdom inal pain with nausea vomiting and diarrhea. Denies any hematemesis or hematochezia. Subjective feeling of fever and chills. Denies any known sick contact. Feels weak fatigued tired and dehydrated. Allergies/Adverse Reactions: aspirin Allergy (Severe, Verified 07/13/24 09:41) cefaclor [From Ceclor] Allergy (Severe, Verified 07/13/24 09:41) Anaphylactic Reaction clarithromycin [From Biaxin] Allergy (Severe, Verified 07/13/24 09:41) Penicillins Allergy (Severe, Verified 07/13/24 09:41) Anaphylactic Reaction sulfamethoxazole [From Bactrim] Allergy (Severe, Verified 07/13/24 09:41) trimethoprim [From Bactrim] Allergy (Severe, Verified 07/13/24 09:41) Home Medications: Duloxetine HCl [Cymbalta] 60 mg PO BID 09/07/20 [History] Gabapentin 600 mg PO TID 03/31/22 [History] Atorvastatin Calcium 40 mg PO HS 01/31/23 [History] Bupropion HCl Xl 150 mg [Wellbutrin XL 150 MG] 150 mg PO DAILY 07/13/24 [History] Galcanezumab-Gnlm [Emgality Syringe] 120 mg SQ UD 07/13/24 [History] Lumateperone Tosylate [Caplyta] 21 mg PO DAILY 07/13/24 [History] Naltrexone HCl 50 mg PO DAILY 07/13/24 [History] Ubrogepant [Ubrelvy] 100 mg PO UD PRN 07/13/24 [History] Hx Tetanus, Diphtheria Vaccination/Date Given: Yes Hx Influenza Vaccination/Date Given: No Hx Pneumococcal Vaccination/Date Given: No Travel Risk - International Travel Have you traveled outside of the country in past 3 weeks: No - Emerging Infectious Disease Are you exhibiting symptoms associated with any current EIDs: Yes Symptoms: Diarrhea, Headaches/Body Aches/, Vomitting - Review of Systems Constitutional: Fatigue, Weakness Eyes: No Symptoms Ears, Nose, & Throat: Nose Congestion, Throat Pain Respiratory: Cough Cardiac: No Symptoms Abdominal/Gastrointestinal: Abdominal Pain, Nausea, Vomiting Genitourinary Symptoms: No Symptoms Musculoskeletal: Back Pain, Myalgias Skin: No Symptoms Neurological: Headache Psychological: No Symptoms Endocrine: No Symptoms Hematologic/Lymphatic: No Symptoms Immunological/Allergic: No Symptoms - Past Medical History Pertinent Past Medical History: Yes Neurological History: Migraines, Other ENT History: No Pertinent History Cardiac History: No Pertinent History Respiratory History: Asthma, Bronchitis Endocrine Medical History: No Pertinent History Musculoskeletal History: Osteoarthritis GI Medical History: No Pertinent History History: No Pertinent History Psycho-Social History: No Pertinent History Female Reproductive Disorders: No Pertinent History Other Medical History: body aches. white matter disease - Past Surgical History Past Surgical History: Yes Neuro Surgical History: No Pertinent History Cardiac: No Pertinent History Respiratory: No Pertinent History Gastrointestinal: Appendectomy Genitourinary: No Pertinent History Musculoskeletal: Orthopedic Surgery Female Surgical History: Dilation & Curettage, Section, Tubal Ligation Other Surgical History: ablasion, 2 left shoulder, 2 left pinky, jorden carpal tunnel, spinal and hip injections - Female History Hx Now: No (ablasion/tubal) - Social History Smoking Status: Current every day smoker How long have you smoked: vapes Exposure to second hand smoke: Yes Drug Use: none - Social Determinants of Health Will the patient participate in the screening: Yes Do you worry about a steady place to live?: No Do you have any problems with any of the following?: No known problems In the past 12 months,have you had to go without utilities?: No Transportation Issues: No Has anyone in your support network made you feel unsafe?: No Have you or anyone in your house had to go w/o enough food: No - Nursing Vital Signs Nursing Vital Signs: Initial Vital Signs Temperature 96.9 F 07/13/24 09:36 Pulse Rate 74 07/13/24 09:36 Blood Pressure 132/91 07/13/24 09:36 O2 Sat by Pulse Oximetry 100 07/13/24 09:36 Pain Scale Pain Intensity 2 - Physical Exam General Appearance: no apparent distress, alert Eye Exam: PERRL/EOMI Ears, Nose, Throat Exam: moist mucous membranes, pharyngeal erythema Neck Exam: normal inspection, non-tender, supple, full range of motion Respiratory Exam: normal breath sounds, lungs clear Cardiovascular Exam: regular rate/rhythm, normal heart sounds Gastrointestinal/Abdomen Exam: soft, normal bowel sounds, tenderness (Generalized) Back Exam: normal inspection, normal range of motion Neurologic Exam: alert, oriented x 3, cooperative, 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 tested SpO2 Interpretation: normal SpO2: 100 O2 Delivery: Room Air Ordered Tests: Active Orders 24 hr Category Date Time Status IV Insertion STAT Care 07/13/24 10:06 Active NPO (ED) STAT Care 07/13/24 10:06 Active CBC W DIFF Stat Lab 07/13/24 10:25 Completed CMP Stat Lab 07/13/24 10:25 Completed HCG QUALITATIVE, SERUM Stat Lab 07/13/24 10:25 Completed LIPASE Stat Lab 07/13/24 10:25 Completed Manual Differential NC Stat Lab 07/13/24 10:25 Completed UA W/RFX UR CULTURE Stat Lab 07/13/24 10:06 Completed Medication Summary Discontinued Medications Generic Name Dose Route Start Last Admin Trade Name Freq PRN Reason Stop Dose Admin Sodium Chloride 1,000 mls @ 999 mls/hr 07/13/24 10:06 07/13/24 11:45 Sodium Chloride 0.9% 1000 Ml IV 07/13/24 11:06 999 mls/hr .Q1H1M STA Infusion Sodium Chloride Confirm 07/13/24 10:19 Sodium Chloride 0.9% 1000 Ml Administered 07/13/24 10:20 Dose 1,000 mls @ ud .ROUTE .STK-MED ONE Ondansetron HCl 4 mg 07/13/24 10:06 07/13/24 10:41 Ondansetron Hcl 4 Mg/2 Ml Vial IV 07/13/24 10:07 4 mg STAT ONE Administration Ondansetron HCl Confirm 07/13/24 10:19 Ondansetron Hcl 4 Mg/2 Ml Vial Administered 07/13/24 10:20 Dose 4 mg .ROUTE .STK-MED ONE Lab/Rad Data: Laboratory Result Diagrams 07/13/24 10:25 07/13/24 10:25 Laboratory Results 07/13/24 07/13/24 07/13/24 Range/Units 10:25 10:25 10:25 WBC (3.98-10.04) x10^3/uL RBC (3.93-5.22) x10^6/uL Hgb (11.2-15.7) g/dL Hct (34.1-44.9) % MCV (79.4-94.8) fL MCH (25.6-32.2) pg MCHC (32.2-35.5) g/dL RDW (11.7-14.4) % Plt Count (182-369) x10^3/uL MPV (9.4-12.3) fL Segmented Neutrophils (34.0-71.1) % Lymphocytes (Manual) (19.3-51.7) % Monocytes (Manual) (4.7-12.5) % Platelet Estimate (NORMAL) RBC Morphology Sodium 140 (135-145) mmol/L Potassium 4.1 (3.5-5.1) mmol/L Chloride 103 (98-107) mmol/L Carbon Dioxide 28 (22-30) mmol/L Anion Gap 11.9 (5-15) MEQ/L BUN 9 (7-17) mg/dL Creatinine 0.74 (0.52-1.04) mg/dL Estimated GFR 99.7 ML/MIN Glucose 91 (74-106) mg/dL Calcium 8.4 (8.4-10.2) mg/dL Total Bilirubin 0.40 (0.2-1.3) mg/dL AST 24 (14-36) U/L ALT 22 (0-35) U/L Alkaline Phosphatase 72 (38-126) U/L Serum Total Protein 6.8 (6.3-8.2) g/dL Albumin 3.9 (3.5-5.0) g/dL Lipase 35 (23-300) U/L Serum HCG, Qual NEGATIVE (NEGATIVE) Urine Color (Yellow) Urine Appearance (Clear) Urine pH (4.6-8.0) Ur Specific Coldiron (1.005-1.030) Urine Protein (Negative) Urine Glucose (UA) (Negative) mg/dL Urine Ketones (Negative) Urine Blood (Negative) Urine Nitrite (Negative) Urine Bilirubin (Negative) Urine Urobilinogen (0.2) mg/dL Ur Leukocyte Esterase (Negative) U Hyaline Cast (Auto) (0-2) /LPF Urine Microscopic RBC (0-5) /HPF Urine Microscopic WBC (0-5) /HPF Ur Epithelial Cells (None Seen) /HPF Urine Bacteria (None Seen) /HPF Urine Culture Reflexed (NO) Influenza Type A Ag NEGATIVE (NEGATIVE) Influenza Type B Ag NEGATIVE (NEGATIVE) RSV (PCR) NEGATIVE (NEGATIVE) SARS-CoV-2 (PCR) POSITIVE A (NEGATIVE) 07/13/24 07/13/24 Range/Units 10:25 10:06 WBC 6.7 (3.98-10.04) x10^3/uL RBC 4.87 (3.93-5.22) x10^6/uL Hgb 13.0 (11.2-15.7) g/dL Hct 41.4 (34.1-44.9) % MCV 85.0 (79.4-94.8) fL MCH 26.7 (25.6-32.2) pg MCHC 31.4 L (32.2-35.5) g/dL RDW 14.1 (11.7-14.4) % Plt Count 170 L (182-369) x10^3/uL MPV 12.1 (9.4-12.3) fL Segmented Neutrophils 83 H (34.0-71.1) % Lymphocytes (Manual) 13 L (19.3-51.7) % Monocytes (Manual) 4 L (4.7-12.5) % Platelet Estimate NORMAL (NORMAL) RBC Morphology NORMAL Sodium (135-145) mmol/L Potassium (3.5-5.1) mmol/L Chloride (98-107) mmol/L Carbon Dioxide (22-30) mmol/L Anion Gap (5-15) MEQ/L BUN (7-17) mg/dL Creatinine (0.52-1.04) mg/dL Estimated GFR ML/MIN Glucose (74-106) mg/dL Calcium (8.4-10.2) mg/dL Total Bilirubin (0.2-1.3) mg/dL AST (14-36) U/L ALT (0-35) U/L Alkaline Phosphatase (38-126) U/L Serum Total Protein (6.3-8.2) g/dL Albumin (3.5-5.0) g/dL Lipase (23-300) U/L Serum HCG, Qual (NEGATIVE) Urine Color Yellow (Yellow) Urine Appearance Cloudy A (Clear) Urine pH 7.5 (4.6-8.0) Ur Specific Coldiron 1.025 (1.005-1.030) Urine Protein Trace A (Negative) Urine Glucose (UA) Negative (Negative) mg/dL Urine Ketones Negative (Negative) Urine Blood Negative (Negative) Urine Nitrite Negative (Negative) Urine Bilirubin Negative (Negative) Urine Urobilinogen 0.2 (0.2) mg/dL Ur Leukocyte Esterase Negative (Negative) U Hyaline Cast (Auto) NONE SEEN (0-2) /LPF Urine Microscopic RBC 0-2 (0-5) /HPF Urine Microscopic WBC 3-5 (0-5) /HPF Ur Epithelial Cells Moderate A (None Seen) /HPF Urine Bacteria Few A (None Seen) /HPF Urine Culture Reflexed NO (NO) Influenza Type A Ag (NEGATIVE) Influenza Type B Ag (NEGATIVE) RSV (PCR) (NEGATIVE) SARS-CoV-2 (PCR) (NEGATIVE) - Progress Progress: improved Progress Note: 07/13/24 12:22 48 years old is evaluated in the ER for flulike symptoms for the last 2 days. She is given fluids and symptomatic treatment, on reevaluation she is feeling much improved. No vomiting or diarrhea while in the ER. No peritoneal signs on abdominal exam. Do not think needs imaging. Lungs clear to auscultation. Patient is not in any distress, workup showed normal white count, unremarkable chemistries and no UTI. Patient has positive COVID-19 and negative flu/RSV. Discussed the results of workup with patient and family and went over in detail about benefits and risk of using Paxlovid which she understands but does not want to go for it at present and would rather like to take symptomatic care with Tylenol Zofran. Discussed signs symptoms of worsening needing return to ER which she seems understanding. Stable for discharge. Complexity of problem addressed is moderate acute, dietary reviewed/analyzed moderate complexity, test results ordered/reviewed and correlated to patient management, plan of care established for shared decision making, it took 20 minutes discussion and discharge planning. No social constraints impeding her outpatient follow-up. Counseled pt/family regarding: lab results, diagnosis, need for follow-up Medical Desision Making - Independent Historian Additional History obtained from: Child - Diagnostic Testing Diagnostic test were ordered, analyzed, and reviewed by me: Yes - Risk of complications Low Risk: Low risk of morbidity from additional dx testing or treatment The pt has a mod risk of morbidity or mortality based on: Need for prescription drug management - Departure Departure Disposition: Home Clinical Impression: COVID-19 virus detected, Viral syndrome Condition: Stable Critical Care Time: No Referrals: SIXTO HUNT MD [Primary Care Provider] - Follow up with PCP 1 day Instructions: COVID-19 - ED discharge instructions, Nausea and vomiting in adults - ED discharge instructions Additional Instructions: Drink plenty of fluids. Take Tylenol/Zofran as needed. Follow-up with primary care for reevaluation. Return to ER for any worsening. Prescriptions: Ondansetron ODT 4 MG [Zofran Odt 4 mg] 1 ea PO QIDPRN PRN #10 tablet PRN Reason: n/v
[2024-07-13] MEDS ORDERED: Sodium Chloride 0.9% 1000 ML 1,000 ML ONE (10:19)
[2024-07-13] MEDS ORDERED: Zofran 4 MG/2 ML VIAL ONE (10:19)
[2024-07-13] MEDS: Sodium Chloride 0.9% 1000 ML 1,000 ML IV STA (10:40)
[2024-07-13] MEDS: Zofran 4 MG/2 ML VIAL IV ONE (10:41)
[2024-07-13 10:42] VITALS: RESP 18; TEMP 98
[2024-07-13 10:51] LABS: Hematocrit 41.4 % (34.1-44.9); Mean Corpuscular Hemoglobin 26.7 pg (25.6-32.2); Mean Corpuscular Hgb Concent. 31.4 g/dL (32.2-35.5); Mean Platelet Volume 12.1 fL (9.4-12.3); Platelet Count 170 x10^3/uL (182-369); Red Blood Count 4.87 x10^6/uL (3.93-5.22); Red Cell Distribution Width 14.1 % (11.7-14.4); White Blood Count 6.7 x10^3/uL (3.98-10.04)
[2024-07-13 11:01] LABS: Appearance Cloudy (Clear); Bacteria Few /HPF (None Seen); Bilirubin Negative (Negative); Blood Negative (Negative); Epithelial Cells Moderate /HPF (None Seen); Glucose, Urine Negative (Negative); Hyaline Casts NONE SEEN /LPF (0-2); Ketones Negative (Negative); Leukocyte Esterase Negative (Negative); Nitrite Negative (Negative); Ph 7.5 (4.6-8.0); Protein,Urine Dip Trace (Negative); RBC 0-2 /HPF (0-5); Specific Gravity 1.025 (1.005-1.030); Urobilinogen 0.2 mg/dL (0.2)
[2024-07-13 11:06] LABS: HCG SERUM TEST NEGATIVE (NEGATIVE)
[2024-07-13 11:09] LABS: ALBUMIN 3.9 g/dL (3.5-5.0); ANION GAP 11.9 MEQ/L (5-15); BILIRUBIN,TOTAL 0.4 mg/dL (0.2-1.3); Calcium 8.4 mg/dL (8.4-10.2); Creatinine 1 0.74 mg/dL (0.52-1.04); EST GLOMERULAR FILTRATION RATE 99.7 ML/MIN; Potassium 4.1 mmol/L (3.5-5.1); Total Protein 6.8 g/dL (6.3-8.2)
[2024-07-13 11:35] LABS: INFLUENZA A NEGATIVE (NEGATIVE); INFLUENZA B NEGATIVE (NEGATIVE); RESPIRATORY SYNCTIAL VIRUS NEGATIVE (NEGATIVE)
[2024-07-13 12:02] LABS: SARS-CoV-2 Xpert Express POSITIVE (NEGATIVE)
[2024-07-13 12:09] LABS: Lymphocytes 13 % (19.3-51.7); Monocyte 4 % (4.7-12.5); Neutrophils 83 % (34.0-71.1); Platelet Estimate NORMAL (NORMAL); Total Cells Counted 100
[2024-07-13 12:10] VITALS: PULSE 68; O2SAT 100
[2024-07-13 12:51] VITALS: BP 129/76
== END 2024-07-13 12:54 | disposition home or self-care (01) ==
LOC: ED 08:51
DX: U07.1 COVID-19 (principal); R11.2 Nausea with vomiting, unspecified; M79.10 Myalgia, unspecified site; R05.1 Acute cough; R10.84 Generalized abdominal pain; R19.7 Diarrhea, unspecified; R53.83 Other fatigue; Z79.899 Other long term (current) drug therapy; Z72.0 Tobacco use
CPT/HCPCS: 0241U; 36415; 80053; 81001; 83690; 84703; 85025; 96361; 96374; 99284; 96375; J2405